=== PATIENT | male | born 1995 | race American Indian/Alaskan Native ===

== ENCOUNTER 2017-05-02 12:01 | Emergency (ER) | payer SELFPAY ==
[2017-05-02 12:18] VITALS: BP 110/75
--- NOTE | 2017-05-02 12:51 | XRay Report ---
LEFT SHOULDER: History: Left shoulder pain. Routine views demonstrate normal bony and soft tissue structures with normal joint alignment of the shoulder. IMPRESSION: Normal study.
--- NOTE | 2017-05-02 12:51 | XRay Report ---
LEFT HUMERUS: History: Left arm pain. AP and lateral views of the humerus demonstrate normal mineralization and contours for this patient's age. No destructive changes are noted and the adjacent soft tissues are normal. IMPRESSION: Normal left humerus.
[2017-05-02] MEDS ORDERED: TORADOL IM ONE (13:30)
--- NOTE | 2017-05-02 13:33 | Emergency Department Report ---
HPI - General Chief Complaint: Extremity Injury, Upper Time Seen by Provider: 05/02/17 13:25 - HPI HPI: This is a 21-year-old Afro-[place] male, who is right-hand dominant, who presents to the emergency department with pain from "my clavicle to my left elbow" that occurred last night after the patient slipped on his niece's toy on the stairs and fell onto his arm. He denies any obvious deformity. He has not taken anything for symptoms prior to presentation. He is able to move the arm but has pain with doing so. He denies any past medical history. He does not have a primary care physician. ED Past Medical Hx - Past Medical History Previous Medical History?: Yes Hx Psychiatric Treatment: Yes (IP GELA 2010 ; DEPRESSION) Hx Asthma: Yes Additional medical history: bronchitis,HEART MURMUR - Surgical History Additional Surgical History: LEFT EYE SURGERY - Social History Smoking Status: Never Smoker Substance Use Type: None - Medications Home Medications: Home Medications Medication Instructions Recorded Confirmed Last Taken Type Citalopram [celeXA] 10 mg PO QDAY #30 tablet 04/12/15 06/10/15 Unknown Rx Butalb/Acetamin/Caff 50-325-40 1 tab PO Q6HR PRN #30 tab 06/10/15 Unknown Rx [Fioricet] Ibuprofen [Motrin 800 MG tab] 800 mg PO Q8HR PRN #30 tablet 06/10/15 Unknown Rx Azithromycin [Zmax] 2 gm PO ONCE #60 ml 11/06/15 Unknown Rx Guaifenesin/Pseudoephedrne HCl 1 each PO Q12HR #15 tab.er.12h 11/06/15 Unknown Rx [Mucinex D ER 1,200-120 mg Tab] Ciprofloxacin HCl [Ciprofloxacin 500 mg PO Q12HR #14 tab 02/26/16 Unknown Rx TAB] Miconazole Nitrate [Miconazole 3] 24 gm TP BID #1 cmb.pf.crm 02/26/16 Unknown Rx diphenhydrAMINE [Benadryl] 25 mg PO ONCE #25 vial 02/26/16 Unknown Rx Doxycycline [Vibramycin] 100 mg PO Q12HR #13 capsule 04/29/16 Unknown Rx HYDROcodone/APAP 5-325 [[place] 1 each PO Q6HR PRN #10 tablet 05/02/17 Unknown Rx 5/325] ED Review of Systems ROS: Stated complaint: LEFT COLLAR BONE TO LEFT ELBOW PAIN Other details as noted in HPI Comment: All other systems reviewed and negative Constitutional: denies: chills, fever Eyes: denies: eye pain, eye discharge, vision change ENT: denies: ear pain, throat pain Respiratory: denies: cough, shortness of breath, wheezing Cardiovascular: denies: chest pain, palpitations Gastrointestinal: denies: abdominal pain, nausea, diarrhea Genitourinary: denies: urgency, dysuria Musculoskeletal: arthralgia. denies: joint swelling Skin: denies: rash, lesions Neurological: denies: headache, weakness, paresthesias Physical Exam - Physical Exam Vital Signs: Vital Signs 05/02/17 12:15 Temperature 99.0 F Pulse Rate 68 Respiratory 20 Rate Blood Pressure 110/75 O2 Sat by Pulse 97 Oximetry Physical Exam: GENERAL: The patient is well-developed well-nourished. HEENT: Normocephalic. Atraumatic. Extraocular motions are intact. Patient has moist mucous membranes. NECK: Supple. Trachea is midline. CHEST/LUNGS: Clear to auscultation. There is no respiratory distress noted. HEART/CARDIOVASCULAR: Regular. There is no tachycardia. There is no gallop rub or murmur. ABDOMEN: Abdomen is soft, nontender. Patient has normal bowel sounds. There is no abdominal distention. SKIN: Skin is warm and dry. NEURO: The patient is awake, alert, and oriented. The patient is cooperative. The patient has no focal neurologic deficits. The patient has normal speech MUSCULOSKELETAL: There is tenderness all patient along the left clavicle and the left upper arm but no obvious deformity. There is no limitation range of motion but he has some pain with doing so with the left upper arm. Radial pulses +2 over 4 bilaterally. Cap refill less than 2 seconds. ED Course Vital Signs 05/02/17 12:15 Temperature 99.0 F Pulse Rate 68 Respiratory 20 Rate Blood Pressure 110/75 O2 Sat by Pulse 97 Oximetry ED Medical Decision Making - Radiology Data Radiology results: image reviewed interpreted by me: X-ray of the left shoulder and the humerus does not show any fracture, and his location or any acute process. - Medical Decision Making 21-year-old male presents with pain from the left clavicle down through the left upper arm to the elbow. No obvious deformity. X-rays do not show any fracture, dislocation or any acute process. Given a Toradol shot and placed in a sling. Will be given a referral for orthopedist. - Differential Diagnosis fracture, dislocation, contusion, sprain, strain Critical Care Time: No Critical care attestation.: If time is entered above; I have spent that time in minutes in the direct care of this critically ill patient, excluding procedure time. ED Disposition Clinical Impression: Pain of left clavicle, Left upper arm pain Disposition: TO HOME OR SELFCARE Is pt being admited?: No Condition: Stable Instructions: Arthralgia (ED) Additional Instructions: Please follow-up with a primary care physician in the next few days. I referral for a local orthopedist, Dr. Ba, in case she would like to follow up regarding continued arm and/or clavicle pain. Return to the emergency department with any worsening of your symptoms or any acute distress. You've been prescribed a medication that is sedating. Therefore this medication cannot be mixed with alcohol, or taken prior to driving, working, or being responsible for children. Prescriptions: HYDROcodone/APAP 5-325 [[place] 5/325] 1 each PO Q6HR PRN #10 tablet PRN Reason: Pain Referrals: PRIMARY CAREMD [Primary Care Provider] - 3-5 Days ULISES BA MD [Staff Physician] - 3-5 Days [facility] [Outside] - 3-5 Days Time of Disposition: 13:46
== END 2017-05-02 14:00 | disposition home or self-care (01) ==
LOC: ED 12:01
DX: M25.512 Pain in left shoulder (principal); J45.909 Unspecified asthma, uncomplicated
CPT/HCPCS: 73030; 73060; 96372; 99283; J1885

== ENCOUNTER 2017-10-30 18:35 | Emergency (ER) | payer SELFPAY ==
--- NOTE | 2017-10-30 21:13 | XRay Report ---
FINAL REPORT PROCEDURE: XR CHEST ROUTINE 2V TECHNIQUE: PA and lateral chest radiographs were obtained. CPT 68089 HISTORY: cough, hx of asthma. COMPARISON: No prior studies are available for comparison. FINDINGS: Heart: Normal. Mediastinum/Vessels: Normal. Lungs/Pleural space: An ill-defined patchy density is noted in the right middle lobe. Left lung and bilateral pleural spaces are clear.. Bony thorax: No acute osseous abnormality. Other: IMPRESSION: Possible early infiltrates right middle lobe..
[2017-10-30] MEDS ORDERED: ZITHROMAX PO ONE (21:56)
--- NOTE | 2017-10-30 21:57 | Emergency Department Report ---
Minor Respiratory - HPI Chief Complaint: Upper Respiratory Infection Stated Complaint: ASTHMA Time Seen by Provider: 10/30/17 21:41 Duration: 2 Days (cough started 1 week ago, worse 2 days ago) Pain Location: Chest (tight with cough) Severity: moderate Minor Respiratory: Yes Able to Tolerate Fluids, Yes Cough, Yes Chest Pain (with cough), Yes Shortness of Breath, No Rhinorrhea, No Sore Throat, No Ear Pain, No Sick Contacts, No Hemoptysis, No Fever Other History: This is a 22 y.o. male presents with cough for 1 week. Two days ago cough got worse, SOB, and difficulty breathing. He have a history of asthma. He has been out of albuterol inhaler for 1 year because he didn't have SOB and thought asthma was fine. [place] think [place] change caused illness. He has not taken anything OTC. Denies chest pain , wheezing, or abdominal pain. ED Review of Systems ROS: Stated complaint: ASTHMA Other details as noted in HPI Constitutional: see HPI. denies: chills, fever ENT: denies: ear pain, throat pain Respiratory: cough, SOB with exertion. denies: orthopnea, SOB at rest, stridor , wheezing Cardiovascular: denies: chest pain, palpitations Gastrointestinal: denies: abdominal pain, nausea, diarrhea Neurological: denies: headache, weakness, paresthesias ED Past Medical Hx - Past Medical History Hx Psychiatric Treatment: Yes ( GR 2010 ; DEPRESSION) Hx Asthma: Yes Additional medical history: bronchitis,HEART MURMUR - Surgical History Additional Surgical History: LEFT EYE SURGERY - Social History Smoking Status: Current Every Day Smoker Substance Use Type: None - Medications Home Medications: Home Medications Medication Instructions Recorded Confirmed Last Taken Type Citalopram [celeXA] 10 mg PO QDAY #30 tablet 04/12/15 06/10/15 Unknown Rx Butalb/Acetamin/Caff 50-325-40 1 tab PO Q6HR PRN #30 tab 06/10/15 Unknown Rx [Fioricet] Ibuprofen [Motrin 800 MG tab] 800 mg PO Q8HR PRN #30 tablet 06/10/15 Unknown Rx Azithromycin [Zmax] 2 gm PO ONCE #60 ml 11/06/15 Unknown Rx Guaifenesin/Pseudoephedrne HCl 1 each PO Q12HR #15 tab.er.12h 11/06/15 Unknown Rx [Mucinex D ER 1,200-120 mg Tab] Ciprofloxacin HCl [Ciprofloxacin 500 mg PO Q12HR #14 tab 02/26/16 Unknown Rx TAB] Miconazole Nitrate [Miconazole 3] 24 gm TP BID #1 cmb.pf.crm 02/26/16 Unknown Rx diphenhydrAMINE [Benadryl] 25 mg PO ONCE #25 vial 02/26/16 Unknown Rx Doxycycline [Vibramycin] 100 mg PO Q12HR #13 capsule 04/29/16 Unknown Rx HYDROcodone/APAP 5-325 [[place] 1 each PO Q6HR PRN #10 tablet 05/02/17 Unknown Rx 5/325] Albuterol Sulfate [Proair 90 mcg IH Q4-6H PRN #1 aer.pow.ba 10/30/17 Unknown Rx Respiclick] Azithromycin [Zithromax] 250 mg PO DAILY 4 Days #4 tablet 10/30/17 Unknown Rx Minor Respiratory Exam - Exam General: Vital signs noted. No distress. Alert and acting appropriately. HEENT: Yes Pharyngeal Erythema, Yes Moist Mucous Membranes, No Pharyngeal Exudates, No Rhinorrhea, No Conjuctival Injection, No Frontal Tenderness, No Maxillary Tenderness Ear: Neither TM Bulge, Neither TM Erythema, Neither EAC Pain, Neither EAC Discharge Neck: Yes Supple, No Adenopathy Lungs: Yes Cough, No Good Air Exchange, No Wheezes, No Ronchi, No Stridor, No Labored Respirations, No Retractions, No Use of Accessory Muscles, No Other Abnormal Lung Sounds Heart: Yes Regular, No Murmur Abdomen: Yes Normal Bowel Sounds, No Tenderness, No Peritoneal Signs Skin: No Rash, No Edema Neurologic: Alert and oriented, no deficits. Musculoskeletal: Unremarkable. ED Course Vital Signs 10/30/17 18:50 Temperature 98.6 F Pulse Rate 74 Respiratory 16 Rate Blood Pressure 117/55 O2 Sat by Pulse 97 Oximetry ED Medical Decision Making - Radiology Data Radiology results: image reviewed CXR IMPRESSION: Possible early infiltrates right middle lobe.. - Medical Decision Making 22 y.o. male examined by me. Presents with cough for 1 week that got worse 2 days ago causing SOB and difficulty breathing. CXR IMPRESSION: Possible early infiltrates right middle lobe. Physical exam cc. Stable. Given azithromycin 500 mg po once in ER. Treated for pneumonia and discharged home with azithromycin 250 mg po daily for 4 days, albuterol inhaler. Return to work in 2 days. Supportive care at home. Follow up with PCP in 5-7 days if symptoms are not improved. Critical care attestation.: If time is entered above; I have spent that time in minutes in the direct care of this critically ill patient, excluding procedure time. ED Disposition Clinical Impression: Asthma Qualifiers: Asthma severity: mild Asthma persistence: intermittent Asthma complication type : uncomplicated Qualified Code(s): J45.20 - Mild intermittent asthma, uncomplicated Pneumonia Qualifiers: Pneumonia type: due to Mycoplasma pneumoniae Laterality: right Lung location: middle lobe of lung Qualified Code(s): J15.7 - Pneumonia due to Mycoplasma pneumoniae Disposition: TO HOME OR SELFCARE Is pt being admited?: No Does the pt Need Aspirin: No Condition: Stable Instructions: Asthma (ED), Bacterial Pneumonia (ED) Additional Instructions: Complete medication as prescribed. If there is no improvement after 5-7 days of treatment follow up with Primary Care Provider. Return to ER if SOB, fever, or difficulty breathing. Prescriptions: Albuterol Sulfate [Proair Respiclick] 90 mcg IH Q4-6H PRN #1 aer.pow.ba PRN Reason: Shortness Of Breath Azithromycin [Zithromax] 250 mg PO DAILY 4 Days #4 tablet Referrals: [facility] [Outside] - 3-5 Days [facility] [Outside] - 3-5 Days [facility] [Outside] - 3-5 Days Forms: Work/School Release Form(ED) Time of Disposition: 22:48 Print Language: IRISH
[2017-10-30 23:00] VITALS: BP 102/43
== END 2017-10-30 23:36 | disposition home or self-care (01) ==
LOC: ED 18:35
DX: J45.20 Mild intermittent asthma, uncomplicated (principal); J15.7 Pneumonia due to Mycoplasma pneumoniae; F32.9 Major depressive disorder, single episode, unspecified; F17.200 Nicotine dependence, unspecified, uncomplicated
CPT/HCPCS: 71046; 99283

== ENCOUNTER 2018-03-05 12:09 | Emergency (ER) | payer SELFPAY ==
[2018-03-05] MEDS ORDERED: TESSALON PERLES PO ONE (14:27)
[2018-03-05] MEDS ORDERED: MOTRIN PO ONE (14:27)
--- NOTE | 2018-03-05 14:28 | Emergency Department Report ---
- General Chief Complaint: Upper Respiratory Infection Stated Complaint: SPITTING UP MUCUS/CP Time Seen by Provider: 03/05/18 14:26 Source: patient Mode of arrival: Ambulatory Limitations: No Limitations - History of Present Illness Initial Comments: This is a 22-year-old male nontoxic, well nourished in appearance, no acute signs of distress presents to the ED with c/o of productive cough, rhinorrhea, nasal congestion x3 weeks. Patient stated he was diagnosed with PNA on 09/2017 and finished his course of antibiotics. Patient stated that symptoms has resolved but returned 3 weeks ago. Patient describes productive cough as yellow mucus production. Patient denies any radiation of pain. Patient stated that chest pain is aggravated with cough. Patient denies pleuritic chest pain. Patient currently in the ED denies any chest pain as he stated is it "mostly during coughing". Patient denies any sick contact. Patient denies any recent travels, long car, recent hospital stays. Patient denies any calf pain or calf tenderness. Patient denies any short of breath, fever, chills, nausea, vomiting , hemoptysis, numbness, tingling, headache or stiff neck. Patient denies any allergies or significant PMH. MD Complaint: cough, rhinorrhea, nasal congestion, other (chest pain) -: week(s) (3) Severity: mild Severity scale (0 -10): 0 Consistency: intermittent, now resolved Improves With: nothing Worsens With: nothing Associated Symptoms: rhinorrhea, nasal congestion, cough, chest pain. denies: fever, chills, myalgias, diaphoresis, headache, sore throat, stiff neck, shortness of breath, abdominal pain, nausea, vomiting, diarrhea, dysuria, rash, confusion, right sweats, weight loss, epistaxis, hoarseness, ear pain Treatments Prior to Arrival: none - Related Data Previous Rx's Medication Instructions Recorded Last Taken Type Citalopram [celeXA] 10 mg PO QDAY #30 tablet 04/12/15 Unknown Rx Butalb/Acetamin/Caff 50-325-40 1 tab PO Q6HR PRN #30 tab 06/10/15 Unknown Rx [Fioricet] Ibuprofen [Motrin 800 MG tab] 800 mg PO Q8HR PRN #30 tablet 06/10/15 Unknown Rx Azithromycin [Zmax] 2 gm PO ONCE #60 ml 11/06/15 Unknown Rx Guaifenesin/Pseudoephedrne HCl 1 each PO Q12HR #15 tab.er.12h 11/06/15 Unknown Rx [Mucinex D ER 1,200-120 mg Tab] Ciprofloxacin HCl [Ciprofloxacin 500 mg PO Q12HR #14 tab 02/26/16 Unknown Rx TAB] Miconazole Nitrate [Miconazole 3] 24 gm TP BID #1 cmb.pf.crm 02/26/16 Unknown Rx diphenhydrAMINE [Benadryl] 25 mg PO ONCE #25 vial 02/26/16 Unknown Rx Doxycycline [Vibramycin] 100 mg PO Q12HR #13 capsule 04/29/16 Unknown Rx HYDROcodone/APAP 5-325 [[place] 1 each PO Q6HR PRN #10 tablet 05/02/17 Unknown Rx 5/325] Albuterol Sulfate [Proair 90 mcg IH Q4-6H PRN #1 aer.pow.ba 10/30/17 Unknown Rx Respiclick] Azithromycin [Zithromax] 250 mg PO DAILY 4 Days #4 tablet 10/30/17 Unknown Rx Azithromycin [Zithromax Z-VIRY] 250 mg PO DAILY #6 tablet 03/05/18 Unknown Rx Benzonatate [Tessalon Perle] 100 mg PO Q8H PRN #20 capsule 03/05/18 Unknown Rx Ibuprofen [Motrin] 600 mg PO Q8H PRN #30 tablet 03/05/18 Unknown Rx Prednisone [predniSONE 10 mg 10 mg PO .TAPER #1 tab.ds.pk 03/05/18 Unknown Rx (6-Day Pack, 21 Tabs)] Allergies Allergy/AdvReac Type Severity Reaction Status Date / Time No Known Allergies Allergy Verified 06/10/15 11:49 ED Review of Systems ROS: Stated complaint: SPITTING UP MUCUS/CP Other details as noted in HPI Constitutional: denies: chills, fever Eyes: denies: eye pain, eye discharge, vision change ENT: denies: ear pain, throat pain Respiratory: cough. denies: shortness of breath, wheezing Cardiovascular: chest pain. denies: palpitations Endocrine: no symptoms reported Gastrointestinal: denies: abdominal pain, nausea, diarrhea Genitourinary: denies: urgency, dysuria Musculoskeletal: denies: back pain, joint swelling, arthralgia Skin: denies: rash, lesions Neurological: denies: headache, weakness, paresthesias Psychiatric: denies: anxiety, depression Hematological/Lymphatic: denies: easy bleeding, easy bruising ED Past Medical Hx - Past Medical History Previous Medical History?: Yes Hx Psychiatric Treatment: Yes (IP GRHA 2010 ; DEPRESSION) Hx Asthma: Yes Additional medical history: bronchitis,HEART MURMUR, pnemonia - Surgical History Past Surgical History?: Yes Additional Surgical History: LEFT EYE SURGERY - Social History Smoking Status: Former Smoker - Medications Home Medications: Home Medications Medication Instructions Recorded Confirmed Last Taken Type Citalopram [celeXA] 10 mg PO QDAY #30 tablet 04/12/15 06/10/15 Unknown Rx Butalb/Acetamin/Caff 50-325-40 1 tab PO Q6HR PRN #30 tab 06/10/15 Unknown Rx [Fioricet] Ibuprofen [Motrin 800 MG tab] 800 mg PO Q8HR PRN #30 tablet 06/10/15 Unknown Rx Azithromycin [Zmax] 2 gm PO ONCE #60 ml 11/06/15 Unknown Rx Guaifenesin/Pseudoephedrne HCl 1 each PO Q12HR #15 tab.er.12h 11/06/15 Unknown Rx [Mucinex D ER 1,200-120 mg Tab] Ciprofloxacin HCl [Ciprofloxacin 500 mg PO Q12HR #14 tab 02/26/16 Unknown Rx TAB] Miconazole Nitrate [Miconazole 3] 24 gm TP BID #1 cmb.pf.crm 02/26/16 Unknown Rx diphenhydrAMINE [Benadryl] 25 mg PO ONCE #25 vial 02/26/16 Unknown Rx Doxycycline [Vibramycin] 100 mg PO Q12HR #13 capsule 04/29/16 Unknown Rx HYDROcodone/APAP 5-325 [[place] 1 each PO Q6HR PRN #10 tablet 05/02/17 Unknown Rx 5/325] Albuterol Sulfate [Proair 90 mcg IH Q4-6H PRN #1 aer.pow.ba 10/30/17 Unknown Rx Respiclick] Azithromycin [Zithromax] 250 mg PO DAILY 4 Days #4 tablet 10/30/17 Unknown Rx Azithromycin [Zithromax Z-VIRY] 250 mg PO DAILY #6 tablet 03/05/18 Unknown Rx Benzonatate [Tessalon Perle] 100 mg PO Q8H PRN #20 capsule 03/05/18 Unknown Rx Ibuprofen [Motrin] 600 mg PO Q8H PRN #30 tablet 03/05/18 Unknown Rx Prednisone [predniSONE 10 mg 10 mg PO .TAPER #1 tab.ds.pk 03/05/18 Unknown Rx (6-Day Pack, 21 Tabs)] ED Physical Exam - General Limitations: No Limitations General appearance: alert, in no apparent distress - Head Head exam: Present: atraumatic, normocephalic - Eye Eye exam: Present: normal appearance Pupils: Present: normal accommodation - ENT ENT exam: Present: normal exam, mucous membranes moist - Neck Neck exam: Present: normal inspection, full ROM. Absent: tenderness, meningismus, lymphadenopathy - Respiratory Respiratory exam: Present: normal lung sounds bilaterally, chest wall tenderness (midsternum region). Absent: respiratory distress, wheezes, rales, rhonchi, stridor, accessory muscle use, decreased breath sounds, prolonged expiratory - Cardiovascular Cardiovascular Exam: Present: regular rate, normal rhythm, normal heart sounds. Absent: bradycardia, tachycardia, irregular rhythm, systolic murmur, diastolic murmur, rubs, gallop - GI/Abdominal GI/Abdominal exam: Present: soft, normal bowel sounds. Absent: distended, tenderness, guarding, rebound, rigid, diminished bowel sounds - Rectal Rectal exam: Present: deferred - Extremities Exam Extremities exam: Present: normal inspection, full ROM, normal capillary refill. Absent: tenderness - Back Exam Back exam: Present: normal inspection, full ROM - Neurological Exam Neurological exam: Present: alert, oriented X3, normal gait - Psychiatric Psychiatric exam: Present: normal affect, normal mood - Skin Skin exam: Present: warm, dry, intact, normal color. Absent: rash ED Course Vital Signs 03/05/18 12:18 Temperature 98 F Pulse Rate 88 Respiratory 20 Rate Blood Pressure 108/69 O2 Sat by Pulse 99 Oximetry - Reevaluation(s) Reevaluation #1: 03/05/18 14:46 Patient is speaking in full sentences with no signs of distress noted. ED Medical Decision Making - Medical Decision Making This is a 22-year-old male that presents with bronchitis and costochondritis. Patient is stable and was examined by me. EKG obtained with normal sinus rhythm and no ST-T abnormalities. Heart score and AGUSTINA score 0 point. Wells criteria 0 point for DVT/SVT/PE. I did get 1 trop and was negative. Labs unremarkable. Chest x-ray has been obtained and dictated by radiologist with normal exam. Patient is notified of x-ray results with no questions noted. Due to patient having symptoms of bronchitis and worsening I will treat patient empirically with zpak. Patient was instructed to increase hydration, rest and take Motrin for fever episodes. Patient received tesslone perrls and motrin in the ED which stated feels much better. Currently denies any chest pain in the ED. Vitals stable. Patient is nonfebrile and normal heart rate. Patient was instructed Follow-up with a primary care doctor in 3-5 days or if symptoms worsen and continue return to emergency room as soon as possible. At time time of discharge, the patient does not seem toxic or ill in appearance. No acute signs of distress noted. Patient agrees to discharge treatment plan of care. No further questions noted by the patient. Critical care attestation.: If time is entered above; I have spent that time in minutes in the direct care of this critically ill patient, excluding procedure time. ED Disposition Clinical Impression: Costochondritis Acute bronchitis Qualifiers: Bronchitis organism: unspecified organism Qualified Code(s): J20.9 - Acute bronchitis, unspecified Disposition: DC-01 TO HOME OR SELFCARE Is pt being admited?: No Does the pt Need Aspirin: No Condition: Stable Instructions: Acute Bronchitis (ED), Costochondritis (ED) Additional Instructions: Follow-up with a primary care doctor in 3-5 days or if symptoms worsen and continue return to emergency room as soon as possible. Prescriptions: Azithromycin [Zithromax Z-VIRY] 250 mg PO DAILY #6 tablet Benzonatate [Tessalon Perle] 100 mg PO Q8H PRN #20 capsule PRN Reason: Cough Ibuprofen [Motrin] 600 mg PO Q8H PRN #30 tablet PRN Reason: Pain Prednisone [predniSONE 10 mg (6-Day Pack, 21 Tabs)] 10 mg PO .TAPER #1 tab.ds.pk Referrals: PRIMARY CARE, [Primary Care Provider] - 3-5 Days FANNY BERNARD MD [Staff Physician] - 3-5 Days [facility] [Outside] - 3-5 Days [facility] [Outside] - 3-5 Days Forms: Work/School Release Form(ED)
[2018-03-05 15:14] LABS: Basophils # (Auto) 0.1 K/mm3 (0.0-0.1); Basophils % (Auto) 0.9 % (0.0-1.8); Eosinophils # (Auto) 0.3 K/mm3 (0.0-0.4); Eosinophils % (Auto) 4.5 % (0.0-4.3); Hematocrit 49.5 % (35.5-45.6); Hemoglobin 16.5 gm/dl (11.8-15.2); Lymphocytes # (Auto) 2.1 K/mm3 (1.2-5.4); Lymphocytes % (Auto) 34.4 % (13.4-35.0); Mean Corpuscular HGB Conc 33 % (32-34); Mean Corpuscular Hemoglobin 29 pg (28-32); Mean Corpuscular Volume 88 fl (84-94); Monocytes # (Auto) 0.6 K/mm3 (0.0-0.8); Monocytes % (Auto) 9.9 % (0.0-7.3); Platelet Count 284 K/mm3 (140-440); Red Blood Count 5.66 M/mm3 (3.65-5.03); Red Cell Distribution Width 14.8 % (13.2-15.2)
[2018-03-05 15:25] LABS: BUN/Creatinine Ratio 13; Blood Urea Nitrogen 12 mg/dL (9-20); Hemolysis Index 10
--- NOTE | 2018-03-05 15:50 | XRay Report ---
CHEST 2 VIEWS INDICATION: Cough. COMPARISON: 10/30/2017. FINDINGS: PA and lateral chest radiographs demonstrate normal cardiomediastinal silhouette. Clear lungs. Intact bones. CONCLUSION: No acute disease in the chest. Thank you for the opportunity to participate in this patient's care.
[2018-03-05 18:09] VITALS: BP 104/73
== END 2018-03-05 18:08 | disposition home or self-care (01) ==
LOC: ED 12:09
DX: J20.9 Acute bronchitis, unspecified (principal); M94.0 Chondrocostal junction syndrome [Tietze]; F32.9 Major depressive disorder, single episode, unspecified; J45.909 Unspecified asthma, uncomplicated; Z87.891 Personal history of nicotine dependence
CPT/HCPCS: 36415; 71046; 80048; 84484; 85025; 93005; 93010; 99283

== ENCOUNTER 2018-03-19 16:51 | Emergency (ER) | payer SELFPAY ==
[2018-03-19 17:10] VITALS: BP 111/70
--- NOTE | 2018-03-19 19:48 | Emergency Department Report ---
ED Male HPI - General Chief complaint: Urogenital-Male Stated complaint: PENILE DISCHARGE Time Seen by Provider: 03/19/18 16:58 Source: patient Mode of arrival: Ambulatory Limitations: No Limitations - History of Present Illness Initial comments: This is a 22-year-old male nontoxic, well nourished in appearance, no acute signs of distress presents to the ED with c/o of penile discharge and dysuria 2 days. Patient denies any testicular pain or swelling. Patient denies any penile ulcers or lesions. Patient stated that he had a sexual intercourse last week prior to the symptoms with arm protected. They stated that he is concerned about STD. Patient denies any nausea, vomiting, chest pain, shortness of breathe, fever, chills, headache, back pain, numbness, tingling, stiff neck. Patient denies any other urinary symptoms. Patient denies any allergies or PMH. MD Complaint: penile discharge, dysuria -: days(s) (2) Location: penis Radiation: none Severity: mild Severity scale (0 -10): 3 Quality: burning Consistency: constant Improves with: none Worsens with: urination discharge, dysuria. denies: swelling, mass, rash, urinary retention, blood in urine, fever, nausea/vomiting, incontinence - Related Data Previous Rx's Medication Instructions Recorded Last Taken Type Citalopram [celeXA] 10 mg PO QDAY #30 tablet 04/12/15 Unknown Rx Butalb/Acetamin/Caff 50-325-40 1 tab PO Q6HR PRN #30 tab 06/10/15 Unknown Rx [Fioricet] Ibuprofen [Motrin 800 MG tab] 800 mg PO Q8HR PRN #30 tablet 06/10/15 Unknown Rx Azithromycin [Zmax] 2 gm PO ONCE #60 ml 11/06/15 Unknown Rx Guaifenesin/Pseudoephedrne HCl 1 each PO Q12HR #15 tab.er.12h 11/06/15 Unknown Rx [Mucinex D ER 1,200-120 mg Tab] Ciprofloxacin HCl [Ciprofloxacin 500 mg PO Q12HR #14 tab 02/26/16 Unknown Rx TAB] Miconazole Nitrate [Miconazole 3] 24 gm TP BID #1 cmb.pf.crm 02/26/16 Unknown Rx diphenhydrAMINE [Benadryl] 25 mg PO ONCE #25 vial 02/26/16 Unknown Rx Doxycycline [Vibramycin] 100 mg PO Q12HR #13 capsule 04/29/16 Unknown Rx HYDROcodone/APAP 5-325 [[place] 1 each PO Q6HR PRN #10 tablet 05/02/17 Unknown Rx 5/325] Albuterol Sulfate [Proair 90 mcg IH Q4-6H PRN #1 aer.pow.ba 10/30/17 Unknown Rx Respiclick] Azithromycin [Zithromax] 250 mg PO DAILY 4 Days #4 tablet 10/30/17 Unknown Rx Azithromycin [Zithromax Z-VIRY] 250 mg PO DAILY #6 tablet 03/05/18 Unknown Rx Benzonatate [Tessalon Perle] 100 mg PO Q8H PRN #20 capsule 03/05/18 Unknown Rx Ibuprofen [Motrin] 600 mg PO Q8H PRN #30 tablet 03/05/18 Unknown Rx Prednisone [predniSONE 10 mg 10 mg PO .TAPER #1 tab.ds.pk 03/05/18 Unknown Rx (6-Day Pack, 21 Tabs)] Allergies Allergy/AdvReac Type Severity Reaction Status Date / Time No Known Allergies Allergy Verified 03/19/18 17:07 ED Review of Systems ROS: Stated complaint: PENILE DISCHARGE Other details as noted in HPI Constitutional: denies: chills, fever Eyes: denies: eye pain, eye discharge, vision change ENT: denies: ear pain, throat pain Respiratory: denies: cough, shortness of breath, wheezing Cardiovascular: denies: chest pain, palpitations Endocrine: no symptoms reported Gastrointestinal: denies: abdominal pain, nausea, diarrhea Genitourinary: dysuria, discharge. 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[facility] 2011 ; DEPRESSION) Hx Asthma: Yes Additional medical history: bronchitis,HEART MURMUR, pnemonia - Surgical History Past Surgical History?: Yes Additional Surgical History: LEFT EYE SURGERY - Social History Smoking Status: Never Smoker Substance Use Type: None - Medications Home Medications: Home Medications Medication Instructions Recorded Confirmed Last Taken Type Citalopram [celeXA] 10 mg PO QDAY #30 tablet 04/12/15 06/10/15 Unknown Rx Butalb/Acetamin/Caff 50-325-40 1 tab PO Q6HR PRN #30 tab 06/10/15 Unknown Rx [Fioricet] Ibuprofen [Motrin 800 MG tab] 800 mg PO Q8HR PRN #30 tablet 06/10/15 Unknown Rx Azithromycin [Zmax] 2 gm PO ONCE #60 ml 11/06/15 Unknown Rx Guaifenesin/Pseudoephedrne HCl 1 each PO Q12HR #15 tab.er.12h 11/06/15 Unknown Rx [Mucinex D ER 1,200-120 mg Tab] Ciprofloxacin HCl [Ciprofloxacin 500 mg PO Q12HR #14 tab 02/26/16 Unknown Rx TAB] Miconazole Nitrate [Miconazole 3] 24 gm TP BID #1 cmb.pf.crm 02/26/16 Unknown Rx diphenhydrAMINE [Benadryl] 25 mg PO ONCE #25 vial 02/26/16 Unknown Rx Doxycycline [Vibramycin] 100 mg PO Q12HR #13 capsule 04/29/16 Unknown Rx HYDROcodone/APAP 5-325 [[place] 1 each PO Q6HR PRN #10 tablet 05/02/17 Unknown Rx 5/325] Albuterol Sulfate [Proair 90 mcg IH Q4-6H PRN #1 aer.pow.ba 10/30/17 Unknown Rx Respiclick] Azithromycin [Zithromax] 250 mg PO DAILY 4 Days #4 tablet 10/30/17 Unknown Rx Azithromycin [Zithromax Z-VIRY] 250 mg PO DAILY #6 tablet 03/05/18 Unknown Rx Benzonatate [Tessalon Perle] 100 mg PO Q8H PRN #20 capsule 03/05/18 Unknown Rx Ibuprofen [Motrin] 600 mg PO Q8H PRN #30 tablet 03/05/18 Unknown Rx Prednisone [predniSONE 10 mg 10 mg PO .TAPER #1 tab.ds.pk 03/05/18 Unknown Rx (6-Day Pack, 21 Tabs)] ED Physical Exam - General Limitations: No Limitations General appearance: alert, in no apparent distress - Head Head exam: Present: atraumatic, normocephalic - Eye Eye exam: Present: normal appearance Pupils: Present: normal accommodation - ENT ENT exam: Present: normal exam, mucous membranes moist - Neck Neck exam: Present: normal inspection, full ROM. Absent: tenderness, meningismus, lymphadenopathy - Respiratory Respiratory exam: Present: normal lung sounds bilaterally. Absent: respiratory distress, wheezes, rales, rhonchi, stridor, chest wall tenderness, accessory muscle use, decreased breath sounds, prolonged expiratory - Cardiovascular Cardiovascular Exam: Present: regular rate, normal rhythm, normal heart sounds. Absent: irregular rhythm, systolic murmur, diastolic murmur, rubs, gallop - GI/Abdominal GI/Abdominal exam: Present: soft, normal bowel sounds. Absent: distended, tenderness, guarding, rebound, rigid, diminished bowel sounds - Rectal Rectal exam: Present: deferred - Extremities Exam Extremities exam: Present: normal inspection, full ROM, normal capillary refill. Absent: tenderness - Back Exam Back exam: Present: normal inspection, full ROM. Absent: tenderness, CVA tenderness (R), CVA tenderness (L), muscle spasm, paraspinal tenderness, vertebral tenderness, rash noted - Neurological Exam Neurological exam: Present: alert, oriented X3, normal gait - Psychiatric Psychiatric exam: Present: normal affect, normal mood - Skin Skin exam: Present: warm, dry, intact, normal color. Absent: rash ED Course Vital Signs 03/19/18 16:58 Temperature 98.2 F Pulse Rate 75 Respiratory 16 Rate Blood Pressure 111/70 O2 Sat by Pulse 98 Oximetry - Reevaluation(s) Reevaluation #1: 03/19/18 19:47 Patient is speaking in full sentences with no signs of distress noted. ED Medical Decision Making - Medical Decision Making This is a 22-year-old male that presents with possible STD. Patient is stable was examined by me. There is no abdominal tenderness. UA obtained. Gonorrhea chlamydia swab pending. Patient was instructed to return in 2 days for GC results. Patient wanted empirical treatment so patient received 1 g Rocephin and 1 g of azithromycin by mouth. Patient was instructed to Follow-up with a primary care doctor in 3-5 days or if symptoms worsen and continue return to emergency room as soon as possible. At time of discharge, the patient does not seem toxic or ill in appearance. No acute signs of distress noted. Patient agrees to discharge treatment plan of care. No further questions noted by the patient. Critical care attestation.: If time is entered above; I have spent that time in minutes in the direct care of this critically ill patient, excluding procedure time. ED Disposition Clinical Impression: Possible exposure to STD Disposition: DC-01 TO HOME OR SELFCARE Is pt being admited?: No Does the pt Need Aspirin: No Condition: Stable Instructions: Safe Sex (ED) Additional Instructions: Follow-up with a primary care doctor in 3-5 days or if symptoms worsen and continue return to emergency room as soon as possible. Return in 3 days for gonorrhea and chlamydia results Referrals: PRIMARY CARE, [Primary Care Provider] - 3-5 Days FANNY BERNARD MD [Staff Physician] - 3-5 Days [facility] [Outside] - 3-5 Days [facility] [Outside] - 3-5 Days Forms: Work/School Release Form(ED)
[2018-03-19 20:10] LABS: Bilirubin,Urine NEG (Negative); Blood,Urine NEG (Negative); Color,Urine Yellow (Yellow); Mucus,Urine 3+ /HPF; Protein,Urine <15 mg/dL mg/dL (Negative)
[2018-03-19] MEDS ORDERED: ROCEPHIN IM ONE (20:32)
[2018-03-19] MEDS ORDERED: XYLOCAINE 1% MPF 5 mL INFILTRATI ONE (20:32)
[2018-03-19] MEDS ORDERED: ZITHROMAX PO ONE (20:32)
== END 2018-03-19 21:10 | disposition home or self-care (01) ==
LOC: ED 16:51
DX: Z20.2 Contact with and (suspected) exposure to infections with a predominantly sexual mode of transmission (principal); F31.9 Bipolar disorder, unspecified; J45.909 Unspecified asthma, uncomplicated
CPT/HCPCS: 81001; 87086; 96372; 99283; J0696

== ENCOUNTER 2018-11-28 16:14 | Emergency (ER) | payer OTHER ==
[2018-11-28 16:49] VITALS: BP 121/53
--- NOTE | 2018-11-28 16:49 | Emergency Department Report ---
Blank Doc - Documentation Documentation: 23 yo male cc of throat pain x 1 week worsened with food but not liquids cc of murry throbbing no other cc This initial assessment diagnostic orders/clinical plan/treatment (s) is/Are subject change based on patient's health status, clinical progression and re- assessment by fellow clinical providers in the ED. Further treatment and work-up at subsequent clinical providers discretion. Patient/guardians urged not to elope from their condition may be serious if not clinically assessed and managed. Initial order include: rapid strep
--- NOTE | 2018-11-28 19:35 | Emergency Department Report ---
ED ENT HPI - General Chief complaint: Sore Throat Stated complaint: HEADACHE/SORE THROAT Time Seen by Provider: 11/28/18 16:47 Source: patient Mode of arrival: Ambulatory Limitations: No Limitations - History of Present Illness Initial comments: 23-year-old -Turk[place] male comes to the emergency room complaining of headache and sore throat 1.5 weeks. Patient reports 2 days ago he had a fever. Patient reports is under been taking Tylenol for pain. Does have a care provider but has not followed up in a while. MD complaint: sore throat -: week(s) (1.5) Location: tooth # Severity scale (0 -10): 8 Quality: other (sore) Consistency: intermittent Improves with: none Worsens with: swallowing Associated Symptoms: sore throat. denies: fever, cough, gum swelling, toothache, rhinorrhea - Related Data Previous Rx's Medication Instructions Recorded Last Taken Type Ibuprofen [Motrin 600 MG tab] 600 mg PO Q8H PRN #15 tablet 11/28/18 Unknown Rx Allergies Allergy/AdvReac Type Severity Reaction Status Date / Time No Known Allergies Allergy Unverified 11/28/18 16:17 ED Dental HPI - General Chief complaint: Sore Throat Stated complaint: HEADACHE/SORE THROAT Time Seen by Provider: 11/28/18 16:47 Source: patient Mode of arrival: Ambulatory Limitations: No Limitations - Related Data Previous Rx's Medication Instructions Recorded Last Taken Type Ibuprofen [Motrin 600 MG tab] 600 mg PO Q8H PRN #15 tablet 11/28/18 Unknown Rx Allergies Allergy/AdvReac Type Severity Reaction Status Date / Time No Known Allergies Allergy Unverified 11/28/18 16:17 ED Review of Systems ROS: Stated complaint: HEADACHE/SORE THROAT Other details as noted in HPI Comment: All other systems reviewed and negative ENT: throat pain Neurological: headache ED Past Medical Hx - Past Medical History Previous Medical History?: Yes Hx Asthma: Yes - Surgical History Past Surgical History?: No - Social History Smoking Status: Current Some Day Smoker Substance Use Type: None - Medications Home Medications: Home Medications Medication Instructions Recorded Confirmed Last Taken Type Ibuprofen [Motrin 600 MG tab] 600 mg PO Q8H PRN #15 tablet 11/28/18 Unknown Rx ED Physical Exam - General Limitations: No Limitations General appearance: alert, in no apparent distress - Head Head exam: Present: atraumatic, normocephalic - Eye Eye exam: Present: EOMI - ENT ENT exam: Present: mucous membranes moist, TM's normal bilaterally - Expanded ENT Exam Expanded Throat exam: Negative: tonsillar erythema, tonsillomegaly, tonsillar exudate - Neck Neck exam: Present: normal inspection, full ROM. Absent: tenderness, lymphadenopathy - Respiratory Respiratory exam: Present: normal lung sounds bilaterally. Absent: respiratory distress - Cardiovascular Cardiovascular Exam: Present: regular rate, normal rhythm. Absent: systolic murmur, diastolic murmur, rubs, gallop - Neurological Exam Neurological exam: Present: alert, oriented X3 - Psychiatric Psychiatric exam: Present: normal affect, normal mood - Skin Skin exam: Present: warm, dry, intact, normal color. Absent: rash ED Course Vital Signs 11/28/18 16:46 Temperature 98 F Pulse Rate 89 Blood Pressure 121/53 O2 Sat by Pulse 99 Oximetry ED Medical Decision Making - Medical Decision Making Patient has been evaluated by this provider in fast track. Patient will be discharged home with a prescription for ibuprofen and Claritin. Increase his water intake and to follow up with his primary care provider if symptoms persist or gets worse. Critical care attestation.: If time is entered above; I have spent that time in minutes in the direct care of this critically ill patient, excluding procedure time. ED Disposition Clinical Impression: Tonsillitis Disposition: DC-01 TO HOME OR SELFCARE Is pt being admited?: No Does the pt Need Aspirin: No Condition: Stable Instructions: Tonsillitis (ED), Acute Headache (ED) Additional Instructions: Take medications as prescribed. Increase her water intake if her symptoms per sist follow-up to primary care provider. Prescriptions: Ibuprofen [Motrin 600 MG tab] 600 mg PO Q8H PRN #15 tablet PRN Reason: Pain Referrals: XUAN ARTIS MD [Primary Care Provider] - 3-5 Days Forms: Work/School Release Form(ED)
== END 2018-11-28 19:48 | disposition home or self-care (01) ==
LOC: ED 16:14 → MERGE 16:14 → ED 19:48
DX: J03.90 Acute tonsillitis, unspecified (principal); F17.200 Nicotine dependence, unspecified, uncomplicated; J45.909 Unspecified asthma, uncomplicated
CPT/HCPCS: 99282

== ENCOUNTER 2019-05-07 02:14 | Emergency (ER) | payer OTHER ==
--- NOTE | 2019-05-07 02:45 | XRay Report ---
CHEST 2 VIEWS INDICATION / CLINICAL INFORMATION: Chest Pain. COMPARISON: 01/16/2019 FINDINGS: SUPPORT DEVICES: None. HEART / MEDIASTINUM: No significant abnormality. LUNGS / PLEURA: No significant pulmonary or pleural abnormality. No pneumothorax. ADDITIONAL FINDINGS: No significant additional findings. IMPRESSION: 1. No acute findings. Signer Name: Kenneth Ochoa MD Signed: 05/07/2019 2:41 AM Workstation Name: [id number]
[2019-05-07] MEDS ORDERED: PROVENTIL IH ONE (03:08)
[2019-05-07] MEDS ORDERED: SOLU-Medrol IM ONE (03:08)
[2019-05-07] MEDS ORDERED: IBUPROFEN PO ONE (03:09)
--- NOTE | 2019-05-07 04:03 | Emergency Department Report ---
- General Chief Complaint: Dyspnea/Respdistress Stated Complaint: CHEST PAIN Time Seen by Provider: 05/07/19 03:10 Source: patient Mode of arrival: Ambulatory Limitations: No Limitations - History of Present Illness Initial Comments: Patient is a 23-year-old -Monegasque male with a history of asthma who presents to ED with acute onset of persistent nasal and sinus congestion, frontal sinus pressure, dry cough with wheezing and shortness of breath for the last 4 days despite using his albuterol inhaler at home. Patient states that 2 hours prior to arrival in the ED he shortness of breath with cough and wheezing was worse and that he felt that he was having severe asthma attack. Patient said that he tried to use inhaler before he got to the ED that did not help. Patient states that enroute to the ED via EMS he was treated with DuoNeb and felt a little better but still short of breath. Patient denies fever, chills, nausea, vomiting, chest pain, abdominal pain, sore throat, headache, dizziness, palpitations, diaphoresis or diarrhea or dysuria. MD Complaint: cough, rhinorrhea, nasal congestion, sinus pain, other (shortness of breath) -: Sudden, days(s) (4) Severity: severe Severity scale (0 -10): 7 Quality: aching Consistency: constant Improves With: nothing Worsens With: nothing Context: sick contacts Associated Symptoms: denies other symptoms, myalgias, headache, rhinorrhea, nasal congestion, cough, shortness of breath. denies: fever, chills, diaphoresis, sore throat, stiff neck, chest pain, abdominal pain, nausea, vomiting, diarrhea, dysuria, rash, confusion, right sweats, weight loss, epistaxis, hoarseness, ear pain, other Treatments Prior to Arrival: none - Related Data Previous Rx's Medication Instructions Recorded Last Taken Type Citalopram [celeXA] 10 mg PO QDAY #30 tablet 04/12/15 Unknown Rx Butalb/Acetamin/Caff 50-325-40 1 tab PO Q6HR PRN #30 tab 06/10/15 Unknown Rx [Fioricet] Ibuprofen [Motrin 800 MG tab] 800 mg PO Q8HR PRN #30 tablet 06/10/15 Unknown Rx Azithromycin [Zmax] 2 gm PO ONCE #60 ml 11/06/15 Unknown Rx Guaifenesin/Pseudoephedrne HCl 1 each PO Q12HR #15 tab.er.12h 11/06/15 Unknown Rx [Mucinex D ER 1,200-120 mg Tab] Ciprofloxacin HCl [Ciprofloxacin 500 mg PO Q12HR #14 tab 02/26/16 Unknown Rx TAB] Miconazole Nitrate [Miconazole 3] 24 gm TP BID #1 cmb.pf.crm 02/26/16 Unknown Rx diphenhydrAMINE [Benadryl] 25 mg PO ONCE #25 vial 02/26/16 Unknown Rx DOXYCYCLINE Hyclate [Vibramycin] 100 mg PO Q12HR #13 capsule 04/29/16 Unknown Rx HYDROcodone/APAP 5-325 [[place] 1 each PO Q6HR PRN #10 tablet 05/02/17 Unknown Rx 5/325] Albuterol Sulfate [Proair 90 mcg IH Q4-6H PRN #1 aer.pow.ba 10/30/17 Unknown Rx Respiclick] Azithromycin [Zithromax] 250 mg PO DAILY 4 Days #4 tablet 10/30/17 Unknown Rx Azithromycin [Zithromax Z-VIRY] 250 mg PO DAILY #6 tablet 03/05/18 Unknown Rx Benzonatate [Tessalon Perle] 100 mg PO Q8H PRN #20 capsule 03/05/18 Unknown Rx Ibuprofen [Motrin] 600 mg PO Q8H PRN #30 tablet 03/05/18 Unknown Rx Prednisone [predniSONE 10 mg 10 mg PO .TAPER #1 tab.ds.pk 03/05/18 Unknown Rx (6-Day Pack, 21 Tabs)] Ibuprofen [Motrin 600 MG tab] 600 mg PO Q8H PRN #15 tablet 11/28/18 Unknown Rx ALBUTEROL Inhaler (OR & NICU) 1 puff IH Q4-6H PRN #1 inha 01/16/19 Unknown Rx [ProAir HFA Inhaler] predniSONE [Deltasone] 20 mg PO QDAY #5 tab 01/16/19 Unknown Rx Amoxicillin [Trimox CAP] 500 mg PO Q8H #30 capsule 05/07/19 Unknown Rx Benzonatate [Tessalon Perles] 100 mg PO Q8HR #30 capsule 05/07/19 Unknown Rx Ibuprofen [Motrin] 600 mg PO Q8H PRN #20 tablet 05/07/19 Unknown Rx Prednisone [predniSONE 10 mg 10 mg PO .TAPER #21 tab.ds.pk 05/07/19 Unknown Rx (6-Day Pack, 21 Tabs)] Allergies Allergy/AdvReac Type Severity Reaction Status Date / Time No Known Allergies Allergy Verified 12/02/18 09:04 ED Review of Systems ROS: Stated complaint: CHEST PAIN Other details as noted in HPI Comment: All other systems reviewed and negative Constitutional: denies: chills, fever Eyes: denies: eye pain, eye discharge, vision change ENT: congestion, other (frontal sinus pressure and congestion). denies: ear pain, throat pain Respiratory: cough, shortness of breath, wheezing Cardiovascular: denies: chest pain, palpitations, dyspnea on exertion, syncope, paroxysmal nocturnal dyspnea Endocrine: no symptoms reported Gastrointestinal: denies: abdominal pain, nausea, diarrhea Genitourinary: denies: urgency, dysuria Musculoskeletal: denies: back pain, joint swelling, arthralgia Skin: denies: rash, lesions Neurological: denies: headache, weakness, paresthesias Psychiatric: denies: anxiety, depression Hematological/Lymphatic: denies: easy bleeding, easy bruising ED Past Medical Hx - Past Medical History Previous Medical History?: Yes Hx Psychiatric Treatment: Yes (IP [facility] 2010 ; DEPRESSION) Hx Asthma: Yes Additional medical history: bronchitis,HEART MURMUR, pnemonia - Surgical History Past Surgical History?: Yes Additional Surgical History: LEFT EYE SURGERY - Social History Smoking Status: Current Some Day Smoker - Medications Home Medications: Home Medications Medication Instructions Recorded Confirmed Last Taken Type Citalopram [celeXA] 10 mg PO QDAY #30 tablet 04/12/15 06/10/15 Unknown Rx Butalb/Acetamin/Caff 50-325-40 1 tab PO Q6HR PRN #30 tab 06/10/15 Unknown Rx [Fioricet] Ibuprofen [Motrin 800 MG tab] 800 mg PO Q8HR PRN #30 tablet 06/10/15 Unknown Rx Azithromycin [Zmax] 2 gm PO ONCE #60 ml 11/06/15 Unknown Rx Guaifenesin/Pseudoephedrne HCl 1 each PO Q12HR #15 tab.er.12h 11/06/15 Unknown Rx [Mucinex D ER 1,200-120 mg Tab] Ciprofloxacin HCl [Ciprofloxacin 500 mg PO Q12HR #14 tab 02/26/16 Unknown Rx TAB] Miconazole Nitrate [Miconazole 3] 24 gm TP BID #1 cmb.pf.crm 02/26/16 Unknown Rx diphenhydrAMINE [Benadryl] 25 mg PO ONCE #25 vial 02/26/16 Unknown Rx DOXYCYCLINE Hyclate [Vibramycin] 100 mg PO Q12HR #13 capsule 04/29/16 Unknown Rx HYDROcodone/APAP 5-325 [[place] 1 each PO Q6HR PRN #10 tablet 05/02/17 Unknown Rx 5/325] Albuterol Sulfate [Proair 90 mcg IH Q4-6H PRN #1 aer.pow.ba 10/30/17 Unknown Rx Respiclick] Azithromycin [Zithromax] 250 mg PO DAILY 4 Days #4 tablet 10/30/17 Unknown Rx Azithromycin [Zithromax Z-VIRY] 250 mg PO DAILY #6 tablet 03/05/18 Unknown Rx Benzonatate [Tessalon Perle] 100 mg PO Q8H PRN #20 capsule 03/05/18 Unknown Rx Ibuprofen [Motrin] 600 mg PO Q8H PRN #30 tablet 03/05/18 Unknown Rx Prednisone [predniSONE 10 mg 10 mg PO .TAPER #1 tab.ds.pk 03/05/18 Unknown Rx (6-Day Pack, 21 Tabs)] Ibuprofen [Motrin 600 MG tab] 600 mg PO Q8H PRN #15 tablet 11/28/18 Unknown Rx ALBUTEROL Inhaler (OR & NICU) 1 puff IH Q4-6H PRN #1 inha 01/16/19 Unknown Rx [ProAir HFA Inhaler] predniSONE [Deltasone] 20 mg PO QDAY #5 tab 01/16/19 Unknown Rx Amoxicillin [Trimox CAP] 500 mg PO Q8H #30 capsule 05/07/19 Unknown Rx Benzonatate [Tessalon Perles] 100 mg PO Q8HR #30 capsule 05/07/19 Unknown Rx Ibuprofen [Motrin] 600 mg PO Q8H PRN #20 tablet 05/07/19 Unknown Rx Prednisone [predniSONE 10 mg 10 mg PO .TAPER #21 tab.ds.pk 05/07/19 Unknown Rx (6-Day Pack, 21 Tabs)] ED Physical Exam - General Limitations: No Limitations General appearance: alert, in no apparent distress - Head Head exam: Present: atraumatic, normocephalic, normal inspection - Eye Eye exam: Present: normal appearance, PERRL, EOMI. Absent: scleral icterus, conjunctival injection, nystagmus, periorbital swelling, periorbital tenderness Pupils: Present: normal accommodation - ENT ENT exam: Present: normal orophraynx, mucous membranes moist, TM's normal bilaterally, normal external ear exam, other (grossly congested nasal passages, frontal sinus pressure and tenderness to palpation) - Neck Neck exam: Present: normal inspection, full ROM. Absent: tenderness, meningismus, lymphadenopathy, thyromegaly - Respiratory Respiratory exam: Present: wheezes (diffusely coarse wheezes throughout the lung). Absent: respiratory distress, rales, rhonchi, stridor, chest wall tenderness, accessory muscle use, decreased breath sounds, prolonged expiratory - Cardiovascular Cardiovascular Exam: Present: normal rhythm, tachycardia, normal heart sounds. Absent: systolic murmur, diastolic murmur, rubs, gallop - GI/Abdominal GI/Abdominal exam: Present: soft, normal bowel sounds. Absent: tenderness, guarding, rebound, hyperactive bowel sounds, hypoactive bowel sounds, mass, hernia - Rectal Rectal exam: Present: deferred - Extremities Exam Extremities exam: Present: normal inspection, full ROM, normal capillary refill - Back Exam Back exam: Present: normal inspection, full ROM. Absent: tenderness, CVA tenderness (R), CVA tenderness (L), muscle spasm, paraspinal tenderness, vertebral tenderness - Neurological Exam Neurological exam: Present: alert, oriented X3, CN II-XII intact, normal gait, reflexes normal - Psychiatric Psychiatric exam: Present: normal affect, normal mood - Skin Skin exam: Present: warm, dry, intact, normal color. Absent: rash ED Course Vital Signs 05/07/19 02:16 Temperature 98.5 F Pulse Rate 109 H Respiratory 18 Rate Blood Pressure 114/70 O2 Sat by Pulse 97 Oximetry - Reevaluation(s) Reevaluation #1: 05/07/19 04:04 This case a 23-year-old -Monegasque male with a history of chronic asthma who presented to the ED with acute onset Sinus congestion, dry cough, wheezing and shortness of breath for 4 days despite using her albuterol inhaler at home. In the ED, patient is tachycardic after using albuterol nebulizer at home and via EMS. Chest x-ray shows no acute cardiopulmonary abnormalities. Patient was given another round of albuterol 5 mg nebulizer treatment and Solu-Medrol 125 mg intramuscular injection. On reevaluation, the wheezing is resolved and patient was discharged home on medications, advised follow-up with his primary care physician in 3-5 days for reevaluation. Patient was advised to return to the ED immediately if symptoms get worse. ED Medical Decision Making - Radiology Data Radiology results: report reviewed, image reviewed Findings [facility] [address] [place] [address] XRay Report Signed Patient: MASON QUIROZ JR MR #: [id number] : 1995 Acct:[id number] Age/Sex: 23 / M ADM Date: 05/07/19 Loc: ED Attending Dr: Ordering Physician: VALENTINA DAVIS MD Date of Service: 05/07/19 Procedure(s): XR chest routine 2V Accession Number(s): [id number] cc: VALENTINA DAVIS MD Fluoro Time In Minutes: CHEST 2 VIEWS INDICATION / CLINICAL INFORMATION: Chest Pain. COMPARISON: 01/16/2019 FINDINGS: SUPPORT DEVICES: None. HEART / MEDIASTINUM: No significant abnormality. LUNGS / PLEURA: No significant pulmonary or pleural abnormality. No pneumoth orax. ADDITIONAL FINDINGS: No significant additional findings. IMPRESSION: 1. No acute findings. Signer Name: Kenneth Ochoa MD Signed: 05/07/2019 2:41 AM Workstation Name: [id number] Transcribed By: Dictated By: Kenneth Ochoa MD Electronically Authenticated By: Kenneth Ochoa MD Signed Date/Time: 05/07/19240 DD/ 9 - Medical Decision Making This case a 23-year-old -Monegasque male with a history of chronic asthma who presented to the ED with acute onset Sinus congestion, dry cough, wheezing and shortness of breath for 4 days despite using her albuterol inhaler at home. In the ED, patient is tachycardic after using albuterol nebulizer at home and via EMS. Chest x-ray shows no acute cardiopulmonary abnormalities. Patient was given another round of albuterol 5 mg nebulizer treatment and Solu-Medrol 125 mg intramuscular injection. On reevaluation, the wheezing is resolved and patient was discharged home on medications, advised follow-up with his primary care physician in 3-5 days for reevaluation. Patient was advised to return to the ED immediately if symptoms get worse. - Differential Diagnosis acute URI; Acute asthmatic bronchitis; dyspnea, Critical care attestation.: If time is entered above; I have spent that time in minutes in the direct care of this critically ill patient, excluding procedure time. ED Disposition Clinical Impression: Acute upper respiratory infection, Acute bronchitis with asthma Acute asthma exacerbation Qualifiers: Asthma severity: mild Asthma persistence: intermittent Qualified Code(s): J45.21 - Mild intermittent asthma with (acute) exacerbation Disposition: TO HOME OR SELFCARE Is pt being admited?: No Does the pt Need Aspirin: No Condition: Stable Instructions: Asthma (ED), Upper Respiratory Infection (ED), Acute Bronchitis (ED) Additional Instructions: Take medications with food, drink plenty of fluids and follow-up. The primary care physician in 3-5 days for reevaluation. Return to the ED immediately if symptoms get worse. Prescriptions: Ibuprofen [Motrin] 600 mg PO Q8H PRN #20 tablet PRN Reason: Pain Prednisone [predniSONE 10 mg (6-Day Pack, 21 Tabs)] 10 mg PO .TAPER #21 tab.ds.pk Benzonatate [Tessalon Perles] 100 mg PO Q8HR #30 capsule Amoxicillin [Trimox CAP] 500 mg PO Q8H #30 capsule Referrals: [facility] [Outside] - 3-5 Days Time of Disposition: 04:32 Print Language: SINHALA
[2019-05-07 05:51] VITALS: BP 105/52
== END 2019-05-07 05:30 | disposition home or self-care (01) ==
LOC: ED 02:14
DX: J45.901 Unspecified asthma with (acute) exacerbation (principal); J06.9 Acute upper respiratory infection, unspecified; J20.9 Acute bronchitis, unspecified
CPT/HCPCS: 71046; 93005; 93010; 94640; 96372; 99283; J2930

== ENCOUNTER 2019-05-19 14:23 | Emergency (ER) | payer OTHER ==
--- NOTE | 2019-05-19 14:30 | Emergency Department Report ---
Blank Doc - Documentation Documentation: This is a 23-year-old male that presents with SI. Stated is depressed. This initial assessment/diagnostic orders/clinical plan/treatment(s) is/are subject to change based on patient's health status, clinical progression and re- assessment by fellow clinical providers in the ED. Further treatment and workup at subsequent clinical providers discretion. Patient/guardians urged not to elope from the ED as their condition may be serious if not clinically assessed and managed. Initial orders include: 1- Patient sent to MAIN ED for further evaluation and treatment 2- mobile equipment operator was notified to have patient be brought back [facility]. 3- RN was notified to keep patient as close range and observation until room available 4- Patient presents with substantial risk of imminent harm to self, appears to be so unable to care for his/her own physical health and safety as to create an imminently life-endangering crisis, and has committed/expressed life endangering crisis to self. Due to this and other complaints, patient is put on 1013.
[2019-05-19 14:56] LABS: Basophils # (Auto) 0.1 K/mm3 (0.0-0.1); Basophils % (Auto) 1.6 % (0.0-1.8); Eosinophils # (Auto) 0.2 K/mm3 (0.0-0.4); Eosinophils % (Auto) 3.7 % (0.0-4.3); Hematocrit 48.2 % (35.5-45.6); Hemoglobin 16.2 gm/dl (11.8-15.2); Lymphocytes # (Auto) 1.5 K/mm3 (1.2-5.4); Lymphocytes % (Auto) 36.6 % (13.4-35.0); Mean Corpuscular HGB Conc 34 % (32-34); Mean Corpuscular Volume 88 fl (84-94); Monocytes # (Auto) 0.3 K/mm3 (0.0-0.8); Monocytes % (Auto) 8.3 % (0.0-7.3); Platelet Count 307 K/mm3 (140-440); Red Blood Count 5.48 M/mm3 (3.65-5.03); Red Cell Distribution Width 14.9 % (13.2-15.2)
[2019-05-19 15:16] LABS: BUN/Creatinine Ratio 9; Blood Urea Nitrogen 9 mg/dL (9-20); Calcium 9.4 mg/dL (8.4-10.2); Hemolysis Index 14
[2019-05-19] MEDS ORDERED: GEODON IM PRN (16:25)
[2019-05-19] MEDS ORDERED: ATIVAN IM PRN (16:26)
--- NOTE | 2019-05-19 16:30 | Emergency Department Report ---
<CUADRADAVIDGAMALIEL - Last Filed: 05/20/19 13:41> ED Psych HPI - General Chief Complaint: Psych Stated Complaint: DEPRESSION Time Seen by Provider: 05/19/19 14:29 - Related Data Previous Rx's Medication Instructions Recorded Last Taken Type Citalopram [celeXA] 10 mg PO QDAY #30 tablet 04/12/15 Unknown Rx Butalb/Acetamin/Caff 50-325-40 1 tab PO Q6HR PRN #30 tab 06/10/15 Unknown Rx [Fioricet] Ibuprofen [Motrin 800 MG tab] 800 mg PO Q8HR PRN #30 tablet 06/10/15 Unknown Rx Azithromycin [Zmax] 2 gm PO ONCE #60 ml 11/06/15 Unknown Rx Guaifenesin/Pseudoephedrne HCl 1 each PO Q12HR #15 tab.er.12h 11/06/15 Unknown Rx [Mucinex D ER 1,200-120 mg Tab] Ciprofloxacin HCl [Ciprofloxacin 500 mg PO Q12HR #14 tab 02/26/16 Unknown Rx TAB] Miconazole Nitrate [Miconazole 3] 24 gm TP BID #1 cmb.pf.crm 02/26/16 Unknown Rx diphenhydrAMINE [Benadryl] 25 mg PO ONCE #25 vial 02/26/16 Unknown Rx DOXYCYCLINE Hyclate [Vibramycin] 100 mg PO Q12HR #13 capsule 04/29/16 Unknown Rx HYDROcodone/APAP 5-325 [[place] 1 each PO Q6HR PRN #10 tablet 05/02/17 Unknown Rx 5/325] Albuterol Sulfate [Proair 90 mcg IH Q4-6H PRN #1 aer.pow.ba 10/30/17 Unknown Rx Respiclick] Azithromycin [Zithromax] 250 mg PO DAILY 4 Days #4 tablet 10/30/17 Unknown Rx Azithromycin [Zithromax Z-VIRY] 250 mg PO DAILY #6 tablet 03/05/18 Unknown Rx Benzonatate [Tessalon Perle] 100 mg PO Q8H PRN #20 capsule 03/05/18 Unknown Rx Ibuprofen [Motrin] 600 mg PO Q8H PRN #30 tablet 03/05/18 Unknown Rx Prednisone [predniSONE 10 mg 10 mg PO .TAPER #1 tab.ds.pk 03/05/18 Unknown Rx (6-Day Pack, 21 Tabs)] Ibuprofen [Motrin 600 MG tab] 600 mg PO Q8H PRN #15 tablet 11/28/18 Unknown Rx ALBUTEROL Inhaler (OR & NICU) 1 puff IH Q4-6H PRN #1 inha 01/16/19 Unknown Rx [ProAir HFA Inhaler] predniSONE [Deltasone] 20 mg PO QDAY #5 tab 01/16/19 Unknown Rx Amoxicillin [Trimox CAP] 500 mg PO Q8H #30 capsule 05/07/19 Unknown Rx Benzonatate [Tessalon Perles] 100 mg PO Q8HR #30 capsule 05/07/19 Unknown Rx Ibuprofen [Motrin] 600 mg PO Q8H PRN #20 tablet 05/07/19 Unknown Rx Prednisone [predniSONE 10 mg 10 mg PO .TAPER #21 tab.ds.pk 05/07/19 Unknown Rx (6-Day Pack, 21 Tabs)] Allergies Allergy/AdvReac Type Severity Reaction Status Date / Time No Known Allergies Allergy Verified 12/02/18 09:04 ED Past Medical Hx - Medications Home Medications: Home Medications Medication Instructions Recorded Confirmed Last Taken Type Citalopram [celeXA] 10 mg PO QDAY #30 tablet 04/12/15 06/10/15 Unknown Rx Butalb/Acetamin/Caff 50-325-40 1 tab PO Q6HR PRN #30 tab 06/10/15 Unknown Rx [Fioricet] Ibuprofen [Motrin 800 MG tab] 800 mg PO Q8HR PRN #30 tablet 06/10/15 Unknown Rx Azithromycin [Zmax] 2 gm PO ONCE #60 ml 11/06/15 Unknown Rx Guaifenesin/Pseudoephedrne HCl 1 each PO Q12HR #15 tab.er.12h 11/06/15 Unknown Rx [Mucinex D ER 1,200-120 mg Tab] Ciprofloxacin HCl [Ciprofloxacin 500 mg PO Q12HR #14 tab 02/26/16 Unknown Rx TAB] Miconazole Nitrate [Miconazole 3] 24 gm TP BID #1 cmb.pf.crm 02/26/16 Unknown Rx diphenhydrAMINE [Benadryl] 25 mg PO ONCE #25 vial 02/26/16 Unknown Rx DOXYCYCLINE Hyclate [Vibramycin] 100 mg PO Q12HR #13 capsule 04/29/16 Unknown Rx HYDROcodone/APAP 5-325 [[place] 1 each PO Q6HR PRN #10 tablet 05/02/17 Unknown Rx 5/325] Albuterol Sulfate [Proair 90 mcg IH Q4-6H PRN #1 aer.pow.ba 10/30/17 Unknown Rx Respiclick] Azithromycin [Zithromax] 250 mg PO DAILY 4 Days #4 tablet 10/30/17 Unknown Rx Azithromycin [Zithromax Z-VIRY] 250 mg PO DAILY #6 tablet 03/05/18 Unknown Rx Benzonatate [Tessalon Perle] 100 mg PO Q8H PRN #20 capsule 03/05/18 Unknown Rx Ibuprofen [Motrin] 600 mg PO Q8H PRN #30 tablet 03/05/18 Unknown Rx Prednisone [predniSONE 10 mg 10 mg PO .TAPER #1 tab.ds.pk 03/05/18 Unknown Rx (6-Day Pack, 21 Tabs)] Ibuprofen [Motrin 600 MG tab] 600 mg PO Q8H PRN #15 tablet 11/28/18 Unknown Rx ALBUTEROL Inhaler (OR & NICU) 1 puff IH Q4-6H PRN #1 inha 01/16/19 Unknown Rx [ProAir HFA Inhaler] predniSONE [Deltasone] 20 mg PO QDAY #5 tab 01/16/19 Unknown Rx Amoxicillin [Trimox CAP] 500 mg PO Q8H #30 capsule 05/07/19 Unknown Rx Benzonatate [Tessalon Perles] 100 mg PO Q8HR #30 capsule 05/07/19 Unknown Rx Ibuprofen [Motrin] 600 mg PO Q8H PRN #20 tablet 05/07/19 Unknown Rx Prednisone [predniSONE 10 mg 10 mg PO .TAPER #21 tab.ds.pk 05/07/19 Unknown Rx (6-Day Pack, 21 Tabs)] ED Medical Decision Making - Lab Data Result diagrams: 05/19/19 14:47 05/19/19 14:47 - Medical Decision Making Mr. Benjamin was evaluated by psychiatric team today. He was discharged by psychiatric team. 1013 has been rescinded. I have arranged for formal d ischarge order. ED Disposition Clinical Impression: Acute depression Disposition: DC-01 TO HOME OR SELFCARE Is pt being admited?: No Does the pt Need Aspirin: No Condition: Stable Instructions: Depression (ED) Referrals: [facility] [Outside] - 3-5 Days Forms: Work/School Release Form(ED) <YOSI MALDONADO - Last Filed: 05/21/19 01:54> ED Psych HPI - General Source: patient, family Mode of arrival: Ambulatory - History of Present Illness Initial Comments: 23-year-old male presents to ED with depression since breaking up with his girlfriend a few days ago. Patient states, "My mom wanted me to be a 1013. I'm fine now I don't like this hospital. Everything is taking too long." Patient told triage nurse that he has been having suicidal ideation and comes and goes. Patient tells me that he has never been suicidal. States he only wants to get back on his medication for depression. States he feels like he needs to calm down. Denies any history of anxiety, bipolar disorder, or schizophrenia. MD Complaint: feels depressed -: days(s) (4) Associated Psychiatric Symptoms: depression, suicidal ideation Quality: changing over time Improves With: none Worsens With: none Context: significant life stressor Associated Symptoms: denies other symptoms Treatments Prior to Arrival: none If Self Harm: admits thoughts of ED Review of Systems ROS: Stated complaint: DEPRESSION Other details as noted in HPI Comment: All other systems reviewed and negative Psychiatric: depression, suicidal thoughts ED Past Medical Hx - Past Medical History Previous Medical History?: Yes Hx Psychiatric Treatment: Yes ([facility] 2010 ; DEPRESSION) Hx Asthma: Yes Additional medical history: bronchitis,HEART MURMUR, pnemonia - Surgical History Additional Surgical History: LEFT EYE SURGERY - Social History Smoking Status: Current Every Day Smoker Substance Use Type: None ED Physical Exam - General Limitations: No Limitations General appearance: alert, in no apparent distress - Head Head exam: Present: atraumatic, normocephalic - Eye Eye exam: Present: normal appearance - ENT ENT exam: Present: mucous membranes moist - Neck Neck exam: Present: normal inspection - Respiratory Respiratory exam: Present: normal lung sounds bilaterally. Absent: respiratory distress - Cardiovascular Cardiovascular Exam: Present: regular rate, normal rhythm - GI/Abdominal GI/Abdominal exam: Present: soft. Absent: distended - Extremities Exam Extremities exam: Present: normal inspection - Neurological Exam Neurological exam: Present: alert, oriented X3 - Psychiatric Psychiatric exam: Present: other (angry) - Skin Skin exam: Present: warm, dry, intact, normal color ED Course Vital Signs 05/19/19 05/19/19 05/20/19 14:29 20:00 01:00 Temperature 98.5 F 98.0 F 98.5 F Pulse Rate 91 H 78 52 L Respiratory 20 18 20 Rate Blood Pressure 112/73 Blood Pressure 106/67 90/53 [Left] O2 Sat by Pulse 100 98 98 Oximetry 05/20/19 09:35 Temperature 98.6 F Pulse Rate 79 Respiratory 16 Rate Blood Pressure Blood Pressure 100/52 [Left] O2 Sat by Pulse 97 Oximetry ED Medical Decision Making - Lab Data Result diagrams: 05/19/19 14:47 05/19/19 14:47 - Medical Decision Making Pt reported to me that he is not having suicidal thoughts, however, he states that his mother, who works at this facility, told him that "he might be a 1013." Triage nurse and midlevel also report that pt endorsed suicidal thoughts. Will place on 1013 at this time due to conflicting accounts. Will dispo per psych. Critical care attestation.: If time is entered above; I have spent that time in minutes in the direct care of this critically ill patient, excluding procedure time.
[2019-05-19] MEDS ORDERED: WATER FOR INJ Sterile (PF) 10 ML ONE (16:32)
[2019-05-19 22:22] LABS: Bilirubin,Urine NEG (Negative); Blood,Urine NEG (Negative); Color,Urine Yellow (Yellow); Mucus,Urine 1+ /HPF; Protein,Urine <15 mg/dL mg/dL (Negative); Urobilinogen,Urine < 2.0 mg/dL (<2.0)
[2019-05-19 22:51] LABS: Amphetamine Screen,Urine PRESUMPTIVE NEGATIVE; Benzodiazepines Screen,Urine PRESUMPTIVE NEGATIVE; Cocaine Screen,Urine PRESUMPTIVE NEGATIVE; Methadone Screen,Urine PRESUMPTIVE NEGATIVE; Opiate Screen,Urine PRESUMPTIVE NEGATIVE
[2019-05-19 23:20] LABS: Cannabinoid Screen,Urine PRESUMPTIVE POSITIVE
[2019-05-20 10:19] VITALS: BP 100/52
--- NOTE | 2019-05-20 10:36 | Consultation ---
History of Present Illness - Reason for Consult Consult date: 05/20/19 Reason for consult: Mental Health Evaluation Requesting physician: YOSI MALDONADO - Chief Complaint Chief complaint: "I wanted attention" - History of Present Psychiatric Illness 23 y.o. AA male who presented to the ER for SI's and depression. Today the patient was calm and cooperative during the assessment. He stated that he was having a "moment" along with issues with his girlfriend. He stated that his mother felt like he needed to cone to the hospital for a mental evaluation, so he agreed. He stated that he came to the ER "seeking attention" which he stated wasn't a good idea. He stated that he could have handled the situation better. Per collateral information from the patient's mother Quinn Emmanuel at [phone], she stated that her son wasn't himself yesterday, but denies that he endorsed SI's. She stated that she brought the patient to ER for "precautionary reasons." The patient denies any previous suicide attempts when asked. He patient denies SI/HI's and AVJH's. He denies erratic sleep and a poor appetite. He denies alcohol consumption (etoh). The patient asked a referral to see a therapist in his local area. Medications and Allergies Allergies Allergy/AdvReac Type Severity Reaction Status Date / Time No Known Allergies Allergy Verified 12/02/18 09:04 Home Medications Medication Instructions Recorded Confirmed Last Taken Type Citalopram [celeXA] 10 mg PO QDAY #30 tablet 04/12/15 06/10/15 Unknown Rx Butalb/Acetamin/Caff 50-325-40 1 tab PO Q6HR PRN #30 tab 06/10/15 Unknown Rx [Fioricet] Ibuprofen [Motrin 800 MG tab] 800 mg PO Q8HR PRN #30 tablet 06/10/15 Unknown Rx Azithromycin [Zmax] 2 gm PO ONCE #60 ml 11/06/15 Unknown Rx Guaifenesin/Pseudoephedrne HCl 1 each PO Q12HR #15 tab.er.12h 11/06/15 Unknown Rx [Mucinex D ER 1,200-120 mg Tab] Ciprofloxacin HCl [Ciprofloxacin 500 mg PO Q12HR #14 tab 02/26/16 Unknown Rx TAB] Miconazole Nitrate [Miconazole 3] 24 gm TP BID #1 cmb.pf.crm 02/26/16 Unknown Rx diphenhydrAMINE [Benadryl] 25 mg PO ONCE #25 vial 02/26/16 Unknown Rx DOXYCYCLINE Hyclate [Vibramycin] 100 mg PO Q12HR #13 capsule 04/29/16 Unknown Rx HYDROcodone/APAP 5-325 [[place] 1 each PO Q6HR PRN #10 tablet 05/02/17 Unknown Rx 5/325] Albuterol Sulfate [Proair 90 mcg IH Q4-6H PRN #1 aer.pow.ba 10/30/17 Unknown Rx Respiclick] Azithromycin [Zithromax] 250 mg PO DAILY 4 Days #4 tablet 10/30/17 Unknown Rx Azithromycin [Zithromax Z-VIRY] 250 mg PO DAILY #6 tablet 03/05/18 Unknown Rx Benzonatate [Tessalon Perle] 100 mg PO Q8H PRN #20 capsule 03/05/18 Unknown Rx Ibuprofen [Motrin] 600 mg PO Q8H PRN #30 tablet 03/05/18 Unknown Rx Prednisone [predniSONE 10 mg 10 mg PO .TAPER #1 tab.ds.pk 03/05/18 Unknown Rx (6-Day Pack, 21 Tabs)] Ibuprofen [Motrin 600 MG tab] 600 mg PO Q8H PRN #15 tablet 11/28/18 Unknown Rx ALBUTEROL Inhaler (OR & NICU) 1 puff IH Q4-6H PRN #1 inha 01/16/19 Unknown Rx [ProAir HFA Inhaler] predniSONE [Deltasone] 20 mg PO QDAY #5 tab 01/16/19 Unknown Rx Amoxicillin [Trimox CAP] 500 mg PO Q8H #30 capsule 05/07/19 Unknown Rx Benzonatate [Tessalon Perles] 100 mg PO Q8HR #30 capsule 05/07/19 Unknown Rx Ibuprofen [Motrin] 600 mg PO Q8H PRN #20 tablet 05/07/19 Unknown Rx Prednisone [predniSONE 10 mg 10 mg PO .TAPER #21 tab.ds.pk 05/07/19 Unknown Rx (6-Day Pack, 21 Tabs)] Active Meds: Active Medications Lorazepam (Ativan) 2 mg IM ONCE PRN PRN Reason: Agitation Last Admin: 05/19/19 16:43 Dose: 2 mg Documented by: Ziprasidone (Geodon) 20 mg IM ONCE PRN PRN Reason: Agitation Last Admin: 05/19/19 16:43 Dose: 20 mg Documented by: Past psychiatric history - Past Medical History Past Medical History: No medical history Past Surgical History: No surgical history - past Psychiatric treatment and history psychiatric treatment history: Seen a psychiatrist as an adolescent. Denies a fam psy hx. - Social History Social history: lives with family Mental Status Exam - Vital signs Last Vital Signs Temp 98.6 F 05/20/19 09:35 Pulse 79 05/20/19 09:35 Resp 16 05/20/19 09:35 BP 100/52 05/20/19 09:35 Pulse Ox 97 05/20/19 09:35 - Exam Narrative exam: MSE: Appearance: calm, cooperative Behavior: regular eye contact Speech: regular rate and tone Mood: "okay" Affect: congruent to mood Thought Process: linear Thought Content: denies SI/HI's and AVH's Motor Activity: ambulatory Cognition: A/O x3 Insight: appropriate Judgment: appropriate Results Result Diagrams: 05/19/19 14:47 05/19/19 14:47 Abnormal lab results 05/19/19 05/19/19 05/19/19 Range/Units 14:47 14:47 14:47 WBC 4.1 L (4.5-11.0) K/mm3 RBC 5.48 H (3.65-5.03) M/mm3 Hgb 16.2 H (11.8-15.2) gm/dl Hct 48.2 H (35.5-45.6) % Lymph % (Auto) 36.6 H (13.4-35.0) % [place] % (Auto) 8.3 H (0.0-7.3) % Salicylates < 0.3 L (2.8-20.0) mg/dL Acetaminophen < 5.0 L (10.0-30.0) ug/mL All other labs normal. Assessment and Plan Assessment and plan: Impression; Cannabis Use DO. Today the patient was calm and cooperative during the assessment. DDx: R/O Substance Induced Mood DO Recommendation/Plan: Rescind 1013. Discussed the importance to abstain from r ecreational drug use, the patient verbalized understanding. Dispo: The can follow up with [facility] for therapy sessions. Staffed Dr Abhishek Turcios.
== END 2019-05-20 13:52 | disposition home or self-care (01) ==
LOC: EEVIPCON 14:23 → ED 14:23
DX: F32.9 Major depressive disorder, single episode, unspecified (principal); J45.909 Unspecified asthma, uncomplicated; F17.200 Nicotine dependence, unspecified, uncomplicated; Z79.899 Other long term (current) drug therapy
CPT/HCPCS: 36415; 80048; 80307; 81001; 85025; 96372; 99284; J2060; J3486; 80320; G0480

== ENCOUNTER 2019-12-12 08:49 | Emergency (ER) | payer OTHER ==
--- NOTE | 2019-12-12 12:35 | Emergency Department Report ---
ED Dizziness HPI - General Chief Complaint: Upper Respiratory Infection Stated Complaint: CHEST PAIN, SWEATING, HEADACHE Time Seen by Provider: 12/12/19 12:04 Source: patient Mode of arrival: Ambulatory Limitations: No Limitations - History of Present Illness Initial Comments: 24-year-old -[place] male patient with history of asthma, depression, and palpitations presents with complaints of intermittent dizziness and headaches for the past week. He rates his current headache as 8/10 in severity and states it is bilateral. He complains of the pain being worse on the right side and states that it hurts to touch. He denies any head injuries, numbness/tingling/weakness in his limbs, difficulty with speech or ambulation, confusion, or vision changes. Patient also states he has been having intermittent chest pain, however this is been going on for many years and he has not followed up with a captain/airline pilot for heart monitor as instructed to. He denies any shortness of breath or worsening of his chest pain. He describes the dizziness as lightheadedness and denies any episodes of syncope. MD Complaint: dizziness, lightheadedness - Related Data Previous Rx's Medication Instructions Recorded Last Taken Type Citalopram [celeXA] 10 mg PO QDAY #30 tablet 04/12/15 Unknown Rx Butalb/Acetamin/Caff 50-325-40 1 tab PO Q6HR PRN #30 tab 06/10/15 Unknown Rx [Fioricet] Ibuprofen [Motrin 800 MG tab] 800 mg PO Q8HR PRN #30 tablet 06/10/15 Unknown Rx Azithromycin [Zmax] 2 gm PO ONCE #60 ml 11/06/15 Unknown Rx Guaifenesin/Pseudoephedrne HCl 1 each PO Q12HR #15 tab.er.12h 11/06/15 Unknown Rx [Mucinex D ER 1,200-120 mg Tab] Ciprofloxacin HCl [Ciprofloxacin 500 mg PO Q12HR #14 tab 02/26/16 Unknown Rx TAB] Miconazole Nitrate [Miconazole 3] 24 gm TP BID #1 cmb.pf.crm 02/26/16 Unknown Rx diphenhydrAMINE [Benadryl] 25 mg PO ONCE #25 vial 02/26/16 Unknown Rx DOXYCYCLINE Hyclate [Vibramycin] 100 mg PO Q12HR #13 capsule 04/29/16 Unknown Rx HYDROcodone/APAP 5-325 [[place] 1 each PO Q6HR PRN #10 tablet 05/02/17 Unknown Rx 5/325] Albuterol Sulfate [Proair 90 mcg IH Q4-6H PRN #1 aer.pow.ba 10/30/17 Unknown Rx Respiclick] Azithromycin [Zithromax] 250 mg PO DAILY 4 Days #4 tablet 10/30/17 Unknown Rx Azithromycin [Zithromax Z-VIRY] 250 mg PO DAILY #6 tablet 03/05/18 Unknown Rx Benzonatate [Tessalon Perle] 100 mg PO Q8H PRN #20 capsule 03/05/18 Unknown Rx Ibuprofen [Motrin] 600 mg PO Q8H PRN #30 tablet 03/05/18 Unknown Rx Prednisone [predniSONE 10 mg 10 mg PO .TAPER #1 tab.ds.pk 03/05/18 Unknown Rx (6-Day Pack, 21 Tabs)] Ibuprofen [Motrin 600 MG tab] 600 mg PO Q8H PRN #15 tablet 11/28/18 Unknown Rx Albuterol INH(or & Nicu Only) 1 puff IH Q4-6H PRN #1 inha 01/16/19 Unknown Rx [ProAir HFA Inhaler] predniSONE [Deltasone] 20 mg PO QDAY #5 tab 01/16/19 Unknown Rx Amoxicillin [Trimox CAP] 500 mg PO Q8H #30 capsule 05/07/19 Unknown Rx Benzonatate [Tessalon Perles] 100 mg PO Q8HR #30 capsule 05/07/19 Unknown Rx Ibuprofen [Motrin] 600 mg PO Q8H PRN #20 tablet 05/07/19 Unknown Rx Prednisone [predniSONE 10 mg 10 mg PO .TAPER #21 tab.ds.pk 05/07/19 Unknown Rx (6-Day Pack, 21 Tabs)] Allergies Allergy/AdvReac Type Severity Reaction Status Date / Time No Known Allergies Allergy Verified 12/02/18 09:04 ED Review of Systems ROS: Stated complaint: CHEST PAIN, SWEATING, HEADACHE Other details as noted in HPI Constitutional: diaphoresis (Reports 2 episodes of night sweats). denies: ch ills, fever, malaise ENT: denies: ear pain, throat pain, hearing loss Respiratory: denies: cough, shortness of breath Cardiovascular: chest pain, palpitations Gastrointestinal: denies: abdominal pain, nausea, vomiting, diarrhea Genitourinary: denies: urgency, frequency, hematuria Musculoskeletal: denies: back pain Skin: denies: rash, lesions Neurological: headache. denies: weakness, numbness, paresthesias, confusion, abnormal gait, vertigo Hematological/Lymphatic: denies: swollen glands ED Past Medical Hx - Past Medical History Previous Medical History?: Yes Hx Psychiatric Treatment: Yes (IP [facility] 2011 ; DEPRESSION) Hx Asthma: Yes Additional medical history: bronchitis,HEART MURMUR, pnemonia - Surgical History Past Surgical History?: Yes Additional Surgical History: LEFT EYE SURGERY - Social History Smoking Status: Former Smoker Substance Use Type: Marijuana - Medications Home Medications: Home Medications Medication Instructions Recorded Confirmed Last Taken Type Citalopram [celeXA] 10 mg PO QDAY #30 tablet 04/12/15 06/10/15 Unknown Rx Butalb/Acetamin/Caff 50-325-40 1 tab PO Q6HR PRN #30 tab 06/10/15 Unknown Rx [Fioricet] Ibuprofen [Motrin 800 MG tab] 800 mg PO Q8HR PRN #30 tablet 06/10/15 Unknown Rx Azithromycin [Zmax] 2 gm PO ONCE #60 ml 11/06/15 Unknown Rx Guaifenesin/Pseudoephedrne HCl 1 each PO Q12HR #15 tab.er.12h 11/06/15 Unknown Rx [Mucinex D ER 1,200-120 mg Tab] Ciprofloxacin HCl [Ciprofloxacin 500 mg PO Q12HR #14 tab 02/26/16 Unknown Rx TAB] Miconazole Nitrate [Miconazole 3] 24 gm TP BID #1 cmb.pf.crm 02/26/16 Unknown Rx diphenhydrAMINE [Benadryl] 25 mg PO ONCE #25 vial 02/26/16 Unknown Rx DOXYCYCLINE Hyclate [Vibramycin] 100 mg PO Q12HR #13 capsule 04/29/16 Unknown Rx HYDROcodone/APAP 5-325 [[place] 1 each PO Q6HR PRN #10 tablet 05/02/17 Unknown Rx 5/325] Albuterol Sulfate [Proair 90 mcg IH Q4-6H PRN #1 aer.pow.ba 10/30/17 Unknown Rx Respiclick] Azithromycin [Zithromax] 250 mg PO DAILY 4 Days #4 tablet 10/30/17 Unknown Rx Azithromycin [Zithromax Z-VIRY] 250 mg PO DAILY #6 tablet 03/05/18 Unknown Rx Benzonatate [Tessalon Perle] 100 mg PO Q8H PRN #20 capsule 03/05/18 Unknown Rx Ibuprofen [Motrin] 600 mg PO Q8H PRN #30 tablet 03/05/18 Unknown Rx Prednisone [predniSONE 10 mg 10 mg PO .TAPER #1 tab.ds.pk 03/05/18 Unknown Rx (6-Day Pack, 21 Tabs)] Ibuprofen [Motrin 600 MG tab] 600 mg PO Q8H PRN #15 tablet 11/28/18 Unknown Rx Albuterol INH(or & Nicu Only) 1 puff IH Q4-6H PRN #1 inha 01/16/19 Unknown Rx [ProAir HFA Inhaler] predniSONE [Deltasone] 20 mg PO QDAY #5 tab 01/16/19 Unknown Rx Amoxicillin [Trimox CAP] 500 mg PO Q8H #30 capsule 05/07/19 Unknown Rx Benzonatate [Tessalon Perles] 100 mg PO Q8HR #30 capsule 05/07/19 Unknown Rx Ibuprofen [Motrin] 600 mg PO Q8H PRN #20 tablet 05/07/19 Unknown Rx Prednisone [predniSONE 10 mg 10 mg PO .TAPER #21 tab.ds.pk 05/07/19 Unknown Rx (6-Day Pack, 21 Tabs)] ED Physical Exam - General Limitations: No Limitations General appearance: alert, in no apparent distress - Head Head exam: Present: atraumatic, normocephalic - Eye Eye exam: Present: normal appearance, PERRL, EOMI. Absent: scleral icterus - ENT ENT exam: Present: mucous membranes moist - Neck Neck exam: Present: normal inspection, full ROM - Respiratory Respiratory exam: Present: normal lung sounds bilaterally. Absent: respiratory distress - Cardiovascular Cardiovascular Exam: Present: regular rate, normal rhythm. Absent: systolic murmur, diastolic murmur, rubs, gallop - GI/Abdominal GI/Abdominal exam: Present: soft, normal bowel sounds. Absent: distended, tenderness, guarding, rebound, rigid - Extremities Exam Extremities exam: Present: normal inspection - Back Exam Back exam: Present: normal inspection - Neurological Exam Neurological exam: Present: alert, oriented X3, CN II-XII intact, normal gait. Absent: motor sensory deficit - Expanded Neurological Exam Expanded Cerebellar function: Finger to Nose: Normal, Heel to Anne: Normal, [place]: Normal Sensory exam: Upper Extremity Light Touch: Normal, Lower Extremity Light Touch: Normal Motor strength exam: RUE: 5, LUE: 5, RLE: 5, LLE: 5 - Psychiatric Psychiatric exam: Present: normal affect, normal mood - Skin Skin exam: Present: warm, dry, intact, normal color. Absent: rash, cyanosis, diaphoretic, erythema, ecchymosis ED Course Vital Signs 12/12/19 12/12/19 08:53 15:15 Temperature 98 F 98.6 F Pulse Rate 79 61 Respiratory 20 20 Rate Blood Pressure 109/59 Blood Pressure 110/70 [Right] O2 Sat by Pulse 100 100 Oximetry ED Medical Decision Making - Lab Data Result diagrams: 12/12/19 12:56 12/12/19 12:56 Lab Results 12/12/19 12/12/19 Range/Units 12:56 12:56 WBC 4.9 (4.5-11.0) K/mm3 RBC 5.55 H (3.65-5.03) M/mm3 Hgb 16.1 H (11.8-15.2) gm/dl Hct 48.7 H (35.5-45.6) % MCV 88 (84-94) fl MCH 29 (28-32) pg MCHC 33 (32-34) % RDW 14.8 (13.2-15.2) % Plt Count 232 (140-440) K/mm3 Lymph % (Auto) 39.2 H (13.4-35.0) % [place] % (Auto) 11.0 H (0.0-7.3) % Eos % (Auto) 2.9 (0.0-4.3) % Baso % (Auto) 0.5 (0.0-1.8) % Lymph # 1.9 (1.2-5.4) K/mm3 [place] # 0.5 (0.0-0.8) K/mm3 Eos # 0.1 (0.0-0.4) K/mm3 Baso # 0.0 (0.0-0.1) K/mm3 Seg Neutrophils % 46.4 (40.0-70.0) % Seg Neutrophils # 2.3 (1.8-7.7) K/mm3 ESR 1 (0-20) mm/Hr Sodium 138 (137-145) mmol/L Potassium 4.3 (3.6-5.0) mmol/L Chloride 100.8 (98-107) mmol/L Carbon Dioxide 26 (22-30) mmol/L Anion Gap 16 mmol/L BUN 17 (9-20) mg/dL Creatinine 0.9 (0.8-1.5) mg/dL Estimated GFR > 60 ml/min BUN/Creatinine Ratio 19 % Glucose 84 (75-100) mg/dL Calcium 9.2 (8.4-10.2) mg/dL Total Bilirubin 0.30 (0.1-1.2) mg/dL AST 14 (5-40) units/L ALT 15 (7-56) units/L Alkaline Phosphatase 44 (35-129) units/L Total Protein 7.0 (6.3-8.2) g/dL Albumin 4.4 (3.9-5) g/dL Albumin/Globulin Ratio 1.7 % - Radiology Data Radiology results: report reviewed CHEST 2 VIEWS INDICATION: MAIN: cough X 1 WEEK . COMPARISON: 01/16/2019. FINDINGS: Support devices: None. Heart: Within normal limits. Lungs/Pleura: No acute air space or interstitial disease. No significant pleural effusion. IMPRESSION: No acute findings. - Medical Decision Making Patient presents for intermittent dizziness and headaches x1 week. He denies any red flag symptoms and his neuro exam is normal. CBC, CMP, and ESR are normal. EKG is also normal. No orthostatic hypotension noted with orthostatic vital signs. he is well-appearing and stable for discharge home. Suspect some component of anxiety. Recommend follow-up with primary care provider within 3 to 5 days. Discussed strict return precautions in detail with patient who verbalizes understanding. Critical care attestation.: If time is entered above; I have spent that time in minutes in the direct care of this critically ill patient, excluding procedure time. ED Disposition Clinical Impression: Intermittent headache, Dizziness Disposition: DC-01 TO HOME OR SELFCARE Is pt being admited?: No Condition: Stable Instructions: Dizziness (ED), Tension Headache (ED) Referrals: ARVIN BAGLEY MD [Staff Physician] - 2-3 Days
--- NOTE | 2019-12-12 12:43 | XRay Report ---
CHEST 2 VIEWS INDICATION: MAIN: cough X 1 WEEK . COMPARISON: 01/16/2019. FINDINGS: Support devices: None. Heart: Within normal limits. Lungs/Pleura: No acute air space or interstitial disease. No significant pleural effusion. IMPRESSION: No acute findings. Signer Name: Pb Murry MD Signed: 12/12/2019 12:38 PM Workstation Name: [id number]
[2019-12-12 13:42] LABS: Basophils % (Auto) 0.5 % (0.0-1.8); Eosinophils # (Auto) 0.1 K/mm3 (0.0-0.4); Eosinophils % (Auto) 2.9 % (0.0-4.3); Hematocrit 48.7 % (35.5-45.6); Hemoglobin 16.1 gm/dl (11.8-15.2); Lymphocytes # (Auto) 1.9 K/mm3 (1.2-5.4); Lymphocytes % (Auto) 39.2 % (13.4-35.0); Mean Corpuscular HGB Conc 33 % (32-34); Mean Corpuscular Volume 88 fl (84-94); Monocytes # (Auto) 0.5 K/mm3 (0.0-0.8); Platelet Count 232 K/mm3 (140-440); Red Blood Count 5.55 M/mm3 (3.65-5.03); Red Cell Distribution Width 14.8 % (13.2-15.2)
[2019-12-12 14:00] LABS: Alanine Aminotransferase 15 units/L (7-56); Albumin 4.4 g/dL (3.9-5); BUN/Creatinine Ratio 19; Blood Urea Nitrogen 17 mg/dL (9-20); Calcium 9.2 mg/dL (8.4-10.2); Hemolysis Index 15
[2019-12-12 15:02] LABS: Erythrocyte Sedimentation Rate 1 mm/Hr (0-20)
[2019-12-12 15:16] VITALS: BP 110/70
[2019-12-12] MEDS ORDERED: BUTALB/ACETAMINOPHEN/CAFFEINE TAB PO ONE (15:26)
== END 2019-12-12 15:37 | disposition home or self-care (01) ==
LOC: ED 08:49
DX: R42 Dizziness and giddiness (principal); R51 Headache; F31.9 Bipolar disorder, unspecified; J45.909 Unspecified asthma, uncomplicated; F12.90 Cannabis use, unspecified, uncomplicated; Z98.890 Other specified postprocedural states; Z79.899 Other long term (current) drug therapy; Z87.891 Personal history of nicotine dependence
CPT/HCPCS: 36415; 71046; 80053; 85025; 85652; 93005; 93010; 99284

== ENCOUNTER 2021-06-17 19:57 | Emergency (ER) | payer SELFPAY | END 2021-06-18 11:47 | disposition left against medical advice (07) | LOC: ED 19:57 | DX: Z53.21 Procedure and treatment not carried out due to patient leaving prior to being seen by health care provider (principal) ==

== ENCOUNTER 2021-06-18 10:42 | Emergency (ER) | payer SELFPAY ==
--- NOTE | 2021-06-18 11:23 | Emergency Department Report ---
ED Asthma HPI - General Stated Complaint: ASTHMA Time Seen by Provider: 06/18/21 11:18 - History of Present Illness Initial Comments: Patient presents secondary to difficulty breathing and asthma exacerbation but has a long history of asthma. He is run out of his inhaler. He recently found that he had exposure to mold and mildew at the home. This is being mitigated. Unfortunately, he came here because he was having trouble breathing and did not have an inhaler. He has never had to be admitted because of his asthma. Is never required intubation. He does not have a nebulizer at home. Patient reports a minimal cough. There is no fevers or chills. Has had no known coronavirus exposure. - Related Data Previous Rx's Medication Instructions Recorded Last Taken Type Citalopram [celeXA] 10 mg PO QDAY #30 tablet 04/12/15 Unknown Rx Butalb/Acetamin/Caff 50-325-40 1 tab PO Q6HR PRN #30 tab 06/10/15 Unknown Rx [Fioricet 50-325-40] Miconazole Nitrate [Miconazole 3] 24 gm TP BID #1 cmb.pf.crm 02/26/16 Unknown Rx Albuterol Sulfate [Proair 90 mcg IH Q4-6H PRN #1 aer.pow.ba 06/18/21 Unknown Rx Respiclick] predniSONE [Deltasone] 40 mg PO QDAY 5 Days #10 tab 06/18/21 Unknown Rx Allergies Allergy/AdvReac Type Severity Reaction Status Date / Time No Known Allergies Allergy Verified 12/02/18 09:04 ED Review of Systems ROS: Stated complaint: ASTHMA Other details as noted in HPI Comment: All other systems reviewed and negative Constitutional: denies: fever Eyes: denies: eye pain ENT: denies: throat pain Respiratory: see HPI Cardiovascular: denies: chest pain Endocrine: denies: unexplained weight loss Gastrointestinal: denies: abdominal pain Genitourinary: denies: dysuria Musculoskeletal: denies: back pain Skin: denies: rash Neurological: denies: headache Hematological/Lymphatic: denies: easy bruising ED Past Medical Hx - Past Medical History Hx Psychiatric Treatment: Yes (IP [facility] 2011 ; DEPRESSION) Hx Asthma: Yes Additional medical history: bronchitis,HEART MURMUR, pnemonia - Surgical History Additional Surgical History: LEFT EYE SURGERY - Family History Family history: no significant - Social History Smoking Status: Former Smoker Substance Use Type: Marijuana Other Social History: We discussed tobacco cessation x3 minutes - Medications Home Medications: Home Medications Medication Instructions Recorded Confirmed Last Taken Type Citalopram [celeXA] 10 mg PO QDAY #30 tablet 04/12/15 06/10/15 Unknown Rx Butalb/Acetamin/Caff 50-325-40 1 tab PO Q6HR PRN #30 tab 06/10/15 Unknown Rx [Fioricet 50-325-40] Miconazole Nitrate [Miconazole 3] 24 gm TP BID #1 cmb.pf.crm 02/26/16 Unknown Rx Albuterol Sulfate [Proair 90 mcg IH Q4-6H PRN #1 aer.pow.ba 06/18/21 Unknown Rx Respiclick] predniSONE [Deltasone] 40 mg PO QDAY 5 Days #10 tab 06/18/21 Unknown Rx ED Physical Exam - General Limitations: Other (Pulse ox is noted. Patient is not hypoxic.) General appearance: alert, in no apparent distress - Head Head exam: Present: atraumatic, normocephalic, normal inspection - Eye Eye exam: Present: normal appearance, EOMI. Absent: scleral icterus - ENT ENT exam: Present: normal exam, normal orophraynx - Neck Neck exam: Present: normal inspection. Absent: meningismus - Respiratory Respiratory exam: Present: normal lung sounds bilaterally, wheezes (Bilateral). Absent: respiratory distress - Cardiovascular Cardiovascular Exam: Present: regular rate, normal rhythm - GI/Abdominal GI/Abdominal exam: Present: other (Flat) - Extremities Exam Extremities exam: Present: normal capillary refill. Absent: pedal edema - Back Exam Back exam: Absent: CVA tenderness (R), CVA tenderness (L) - Neurological Exam Neurological exam: Present: alert, oriented X3. Absent: motor sensory deficit - Psychiatric Psychiatric exam: Present: normal affect, normal mood - Skin Skin exam: Present: warm, dry ED Course - Reevaluation(s) Reevaluation #1: 06/18/21 11:54 Patient was seen as above and discharge. ED Medical Decision Making - Medical Decision Making Patient presented with asthma exacerbation. He was treated symptomatically. He does not have any evidence of respiratory distress. Is not hypoxic. Is not tachypneic. He certainly does not require admission. Patient was placed on steroids empirically at this time. He does have measures in place to mitigate the exposure to mold and mildew. We discussed using a dehumidifier. We discussed tobacco cessation. Critical Care Time: No Critical care attestation.: If time is entered above; I have spent that time in minutes in the direct care of this critically ill patient, excluding procedure time. ED Disposition Clinical Impression: Mold exposure, Tobacco use Asthma exacerbation Qualifiers: Asthma severity: mild Asthma persistence: intermittent Qualified Code(s): J45.21 - Mild intermittent asthma with (acute) exacerbation Disposition: HOME / SELF CARE / HOMELESS Is pt being admited?: No Does the pt Need Aspirin: No Condition: Stable Instructions: Asthma, Adult, Health Risks of Smoking Additional Instructions: Stop smoking. Drink plenty of water. Return for problems. Follow-up with your regular doctor for recheck. Use the inhaler as directed. Prescriptions: predniSONE [Deltasone] 40 mg PO QDAY 5 Days #10 tab Albuterol Sulfate [Proair Respiclick] 90 mcg IH Q4-6H PRN #1 aer.pow.ba PRN Reason: Shortness Of Breath Referrals: PRIMARY CAREMD [Referring] - 3-5 Days FANNY ROQUE MD [Staff Physician] - 3-5 Days
== END 2021-06-18 11:51 | disposition home or self-care (01) ==
LOC: ED 10:42
DX: J45.901 Unspecified asthma with (acute) exacerbation (principal); F12.90 Cannabis use, unspecified, uncomplicated; Z87.891 Personal history of nicotine dependence; Z98.890 Other specified postprocedural states; Z71.6 Tobacco abuse counseling; Z79.899 Other long term (current) drug therapy
CPT/HCPCS: 99282

== ENCOUNTER 2022-02-21 20:30 | Emergency (ER) | payer BC ==
[2022-02-21 20:39] VITALS: BP 116/67
[2022-02-21] MEDS ORDERED: BUTALB/ACETAMINOPHEN/CAFFEINE TAB PO ONE (20:48)
[2022-02-21 21:05] LABS: Basophils % (Auto) 0.9 % (0.0-1.8); Eosinophils # (Auto) 0.3 K/mm3 (0.0-0.4); Hematocrit 43.6 % (35.5-45.6); Hemoglobin 14.4 gm/dl (11.8-15.2); Lymphocytes # (Auto) 2.4 K/mm3 (1.2-5.4); Lymphocytes % (Auto) 44.8 % (13.4-35.0); Mean Corpuscular HGB Conc 33 % (32-34); Mean Corpuscular Volume 90 fl (84-94); Monocytes # (Auto) 0.5 K/mm3 (0.0-0.8); Monocytes % (Auto) 9.7 % (0.0-7.3); Platelet Count 236 K/mm3 (140-440); Red Blood Count 4.86 M/mm3 (3.65-5.03); Red Cell Distribution Width 14.7 % (13.2-15.2)
--- NOTE | 2022-02-21 21:27 | XRay Report ---
. XR chest 1V ap INDICATION / CLINICAL INFORMATION: CHEST PAIN. COMPARISON: 04/14/2020 FINDINGS: SUPPORT DEVICES: None. HEART /PULMONARY VASCULATURE: No significant abnormality. LUNGS / PLEURA: No significant pulmonary or pleural abnormality. No pneumothorax. ADDITIONAL FINDINGS: No significant additional findings. IMPRESSION: 1. No acute findings. Signer Name: Kenneth Giraldo MD Signed: 02/21/2022 9:23 PM Workstation Name: [id number]
[2022-02-21 21:30] LABS: Alanine Aminotransferase 14 units/L (7-56); Albumin 4.1 g/dL (3.9-5); BUN/Creatinine Ratio 16; Blood Urea Nitrogen 16 mg/dL (9-20); Calcium 9.2 mg/dL (8.4-10.2); Hemolysis Index 12
--- NOTE | 2022-02-21 23:36 | Emergency Department Report ---
ED General Adult HPI - General Chief complaint: Headache Stated complaint: HEADACHES/EYE PINK Source: patient Mode of arrival: Ambulatory Limitations: No Limitations - History of Present Illness Initial comments: Patient is a 26-year-old -L[place] male with a history of chronic back pain, asthma, anxiety and depression who presents to the ED with complaint of acute exacerbation of his chronic back pain and anterior chest wall pain with persistent headache for the 1 week, worse in the last 3 days. Patient states that the symptoms have been persistent and worse especially due to heavy lifting at work. Patient denies dizziness, syncope, shortness of breath, nausea and vomiting or diarrhea, abdominal pain, fever, chills, sore throat, nasal and sinus congestion or numbness and tingling or weakness of upper and lower extremities bilaterally. MD Complaint: Mid posterior thoracic pain, intermittent chest pain, headache -: Gradual, month(s) (12) Location: chest, back Radiation: non-radiation Severity scale (0 -10): 5 Quality: aching, sharp Consistency: constant Improves with: none Worsens with: movement Associated Symptoms: denies other symptoms, chest pain, headaches. denies: confusion, cough, diaphoresis, fever/chills, malaise, nausea/vomiting, rash, seizure, shortness of breath, syncope, weakness, other Treatments Prior to Arrival: none - Related Data Previous Rx's Medication Instructions Recorded Last Taken Type Citalopram [celeXA] 10 mg PO QDAY #30 tablet 04/12/15 Unknown Rx Miconazole Nitrate [Miconazole 3] 24 gm TP BID #1 cmb.pf.crm 02/26/16 Unknown Rx Albuterol Sulfate [Proair 90 mcg IH Q4-6H PRN #1 aer.pow.ba 06/18/21 Unknown Rx Respiclick] predniSONE [Deltasone] 40 mg PO QDAY 5 Days #10 tab 06/18/21 Unknown Rx Baclofen 20 mg PO Q12H PRN #24 tab 02/21/22 Unknown Rx Butalb/Acetamin/Caff 50-325-40 1 tab PO Q6HR PRN #12 tab 02/21/22 Unknown Rx [Fioricet 50-325-40] Ibuprofen [Motrin] 600 mg PO Q8H PRN #30 tablet 02/21/22 Unknown Rx Allergies Allergy/AdvReac Type Severity Reaction Status Date / Time No Known Allergies Allergy Verified 12/02/18 09:04 ED Review of Systems ROS: Stated complaint: HEADACHES/EYE PINK Other details as noted in HPI Constitutional: denies: chills, fever Eyes: denies: eye pain, eye discharge, vision change ENT: congestion. denies: ear pain, throat pain Respiratory: denies: cough, shortness of breath, wheezing Cardiovascular: chest pain (Anterior chest wall pain). denies: palpitations Endocrine: no symptoms reported Gastrointestinal: denies: abdominal pain, nausea, vomiting, diarrhea Genitourinary: denies: urgency, dysuria Musculoskeletal: back pain (Mid posterior thoracic pain). denies: joint swelling, arthralgia Skin: denies: rash, lesions Neurological: headache. denies: weakness, paresthesias Psychiatric: denies: anxiety, depression Hematological/Lymphatic: denies: easy bleeding, easy bruising ED Past Medical Hx - Past Medical History Previous Medical History?: Yes Hx Psychiatric Treatment: Yes (IP [facility] 2010 ; DEPRESSION) Hx Asthma: Yes Additional medical history: bronchitis,HEART MURMUR, pnemonia - Surgical History Past Surgical History?: Yes Additional Surgical History: LEFT EYE SURGERY - Social History Smoking Status: Never Smoker Substance Use Type: None - Medications Home Medications: Home Medications Medication Instructions Recorded Confirmed Last Taken Type Citalopram [celeXA] 10 mg PO QDAY #30 tablet 04/12/15 06/10/15 Unknown Rx Miconazole Nitrate [Miconazole 3] 24 gm TP BID #1 cmb.pf.crm 02/26/16 Unknown Rx Albuterol Sulfate [Proair 90 mcg IH Q4-6H PRN #1 aer.pow.ba 06/18/21 Unknown Rx Respiclick] predniSONE [Deltasone] 40 mg PO QDAY 5 Days #10 tab 06/18/21 Unknown Rx Baclofen 20 mg PO Q12H PRN #24 tab 02/21/22 Unknown Rx Butalb/Acetamin/Caff 50-325-40 1 tab PO Q6HR PRN #12 tab 02/21/22 Unknown Rx [Fioricet 50-325-40] Ibuprofen [Motrin] 600 mg PO Q8H PRN #30 tablet 02/21/22 Unknown Rx ED Physical Exam - General Limitations: No Limitations General appearance: alert, in no apparent distress - Head Head exam: Present: atraumatic, normocephalic, normal inspection - Eye Eye exam: Present: normal appearance, PERRL, EOMI Pupils: Present: normal accommodation - ENT ENT exam: Present: normal exam, normal orophraynx, mucous membranes moist, TM's normal bilaterally, normal external ear exam - Neck Neck exam: Present: normal inspection, full ROM. Absent: tenderness - Respiratory Respiratory exam: Present: normal lung sounds bilaterally, chest wall tenderness (Palpable reproducible anterior chest wall tenderness). Absent: respiratory distress, wheezes, accessory muscle use, decreased breath sounds, prolonged expiratory - Cardiovascular Cardiovascular Exam: Present: regular rate, normal rhythm, normal heart sounds. Absent: systolic murmur, diastolic murmur, rubs, gallop - GI/Abdominal GI/Abdominal exam: Present: soft, normal bowel sounds. Absent: tenderness, gua rding, rebound, hyperactive bowel sounds, hypoactive bowel sounds, organomegaly, bruit - Extremities Exam Extremities exam: Present: normal inspection, full ROM, normal capillary refill. Absent: tenderness - Back Exam Back exam: Present: normal inspection, full ROM, tenderness (Palpable mid posterior thoracic paraspinal musculoskeletal tenderness), muscle spasm, paraspinal tenderness. Absent: CVA tenderness (R), CVA tenderness (L), vertebral tenderness - Neurological Exam Neurological exam: Present: alert, oriented X3, CN II-XII intact, normal gait, reflexes normal - Psychiatric Psychiatric exam: Present: normal affect, normal mood, anxious - Skin Skin exam: Present: warm, dry, intact, normal color. Absent: rash ED Course Vital Signs 02/21/22 02/21/22 20:36 20:55 Temperature 97.6 F Pulse Rate 76 Respiratory 18 16 Rate Blood Pressure 116/67 [Left] O2 Sat by Pulse 96 Oximetry ED Medical Decision Making - Lab Data Result diagrams: 02/21/22 20:52 02/21/22 20:52 - Radiology Data Radiology results: report reviewed, image reviewed [facility] [address] [place] [address] XRay Report Signed Patient: MASON QUIROZ JR MR #: [id number] : 1995 Acct:[id number] Age/Sex: 26 / M ADM Date: 02/21/22 Loc: ED Attending Dr: Ordering Physician: CASEY JONES Date of Service: 02/21/22 Procedure(s): XR chest 1V ap Accession Number(s): [id number] cc: CASEY JONES Fluoro Time In Minutes: . XR chest 1V ap INDICATION / CLINICAL INFORMATION: CHEST PAIN. COMPARISON: 04/14/2020 FINDINGS: SUPPORT DEVICES: None. HEART /PULMONARY VASCULATURE: No significant abnormality. LUNGS / PLEURA: No significant pulmonary or pleural abnormality. No pneumothorax. ADDITIONAL FINDINGS: No significant additional findings. IMPRESSION: 1. No acute findings. Signer Name: Elle Escalona MD Signed: 02/21/2022 9:23 PM Workstation Name: [id number] Transcribed By: JS Dictated By: ELLE ESCALONA MD Electronically Authenticated By: ELLE ESCALONA MD Signed Date/Time: 02/21/222122 DD/ 22 TD/TT: - Medical Decision Making This is a 26-year-old -L[place] male with a history of chronic back pain, asthma, anxiety and depression who presents to the ED with complaint of acute exacerbation of his chronic back pain and anterior chest wall pain with persistent headache for the 1 week, worse in the last 3 days. Patient states that the symptoms have been persistent and worse especially due to heavy lifting at work. In the ED, patient is alert and oriented x3 and is not in any distress. Lab test results were reviewed and are all nonactionable. EKG shows normal sinus rhythm with a ventricular rate of [address] elevations in anterior leads. Chest x-ray showed no acute cardiopulmonary abnormalities or pneumonitis. Patient symptoms are likely due to musculoskeletal muscle strain due to heavy lifting at work. Patient was discharged home on medications and advised to follow-up with his primary care physician in 5 to 7 days for reevaluation or return to the ED immediately if symptoms get worse. - Differential Diagnosis Muscle strain; tension headache; muscle spasm; costochonritis Critical care attestation.: If time is entered above; I have spent that time in minutes in the direct care of this critically ill patient, excluding procedure time. ED Disposition Clinical Impression: Acute costochondritis, Muscle strain of anterior chest wall, Spasm of thoracic back muscle Tension-type headache Qualifiers: Headache chronicity pattern: acute headache Intractability: not intractable Qualified Code(s): G44.209 - Tension-type headache, unspecified, not intractable Disposition: 01 HOME / SELF CARE / HOMELESS Is pt being admited?: No Does the pt Need Aspirin: No Condition: Stable Instructions: Muscle Cramps and Spasms, [id number], Costochondritis, Eas y-to-Read, Muscle Strain, [id number], Tension Headache, Adult, [id number], Thoracic Strain Rehab-SportsMed Additional Instructions: All lab test results were reviewed and are all nonactionable. Chest x-ray showed no acute cardiopulmonary abnormalities or pneumonitis. Therefore take medications with food, drink plenty of fluids, follow-up with your primary care physician in 7 to 10 days for reevaluation or return to the ED immediately if symptoms get worse. Prescriptions: Baclofen 20 mg PO Q12H PRN #24 tab PRN Reason: Muscle Spasm Butalb/Acetamin/Caff 50-325-40 [Fioricet 50-325-40] 1 tab PO Q6HR PRN #12 tab PRN Reason: Headache Ibuprofen [Motrin] 600 mg PO Q8H PRN #30 tablet PRN Reason: Pain Referrals: [facility] [Provider Group] - 3-5 Days Forms: Work/School Release Form(ED) Time of Disposition: 23:39 Print Language: TAIWANESE
== END 2022-02-21 23:58 | disposition home or self-care (01) ==
LOC: ED 20:30
DX: S29.011A Strain of muscle and tendon of front wall of thorax, initial encounter (principal); M94.0 Chondrocostal junction syndrome [Tietze]; M62.830 Muscle spasm of back; G44.209 Tension-type headache, unspecified, not intractable; J45.909 Unspecified asthma, uncomplicated; Z79.899 Other long term (current) drug therapy; X58.XXXA Exposure to other specified factors, initial encounter; Y93.89 Activity, other specified; Y92.89 Other specified places as the place of occurrence of the external cause; Y99.8 Other external cause status
CPT/HCPCS: 36415; 71045; 80053; 84484; 85025; 93005; 99284